=== PATIENT | male | born 1955 | race Caucasian/White ===

== ENCOUNTER → 2023-10-11 14:24 | Outpatient (CLI) | payer MEDICARE, SELFPAY ==
--- NOTE | ~2023-10-11 | XR_ITS ---
EXAMINATION: XR chest 2V DATE: 10/11/2023 14:55 INDICATION: Productive cough. TECHNIQUE: Frontal and lateral views of the chest were obtained. COMPARISON: None. FINDINGS: There is blunting of left lateral costophrenic angle, consistent with scarring. No pleural effusion or pneumothorax. The heart size is normal. IMPRESSION: 1. Left lateral costophrenic angle. Reviewed, dictated and finalized at location E.
== END ==
PROVIDERS: PCP Physician Assistant; Visit Provider Physician Assistant
DX: R05.9 Cough, unspecified (principal)
CPT/HCPCS: 71046

== ENCOUNTER 2024-12-29 07:11 | Outpatient (CLI) | payer MEDICARE, SELFPAY ==
--- NOTE | ~2024-12-29 | US_ITS ---
Abdominal Sonogram: Real-time sonographic imaging of the abdomen was performed. Clinical History: Increasing abdominal girth Findings: The liver appears normal with no evidence of mass lesion or bile duct dilatation. Main por octavia vein demonstrates normal direction of flow. The spleen is normal in size without evidence of foca l lesion. The gallbladder is well distended, and appears normal with no evidence of gallstone or wal l thickening. The common bile duct measures 4 mm. The visualized pancreas, aorta, and IVC are unrema rkable. The right kidney measures 11.5 cm in length and the left kidney measures 12.4 cm. There is no hydronephrosis or renal calculus. Small bilateral renal cysts are present. Impression: No significant abnormality. Reviewed, dictated and finalized at [facility]. Impression: No significant abnormality.
--- OUTSIDE RECORDS SUMMARY | 2024-12-29 07:14 | XMS_ITS | Clinical Summary ---
Author Organization [facility] Address [address] [place] [address] Care Team Providers Care Transformation Manager Name Role Phone Nilesh Marrero MD Primary Care Provider [phone] Allergies No known active allergies Medications vortioxetine (BRINTELLIX) 10 MG tablet Take 1 tablet by mouth daily. 5 Active lithium 300 MG capsule Take 300 mg by mouth 3 (three) times a day. 5 Active diazepam 5 MG tablet Take 1 tablet by mouth 4 (four) times daily as needed. 6 Active Flurazepam HCl 15 MG Cap flurazepam capsule 15 mg; take 1-2 tablet by mouth once a day at bedtime; 0; 02-Oct-2015; Active 6 Active folic acid 1 MG tablet Take 1 tablet by mouth daily. 4 Active aspirin 81 MG chewable tablet Chew 1 tablet by mouth daily. 1 Active DAILY MULTIPLE VITAMINS Tab Take 1 tablet by mouth daily. 5 Active benazepril 40 MG tablet Take 1 tablet (40 mg total) by mouth 2 (two) times a day. 60 tablet 2 9 Active spironolactone- hydrochlorothia zide 25-25 MG tablet Take 1 tablet by mouth daily. 30 tablet 2 9 Active Active Problems Problem Noted Date Diagnosed Date Essential (primary) hypertension 11/11/2016 Bradycardia 11/11/2016 Family History Medical History Relation Comments Heart Attack Maternal Grandfather [place] Mother Heart Disease Other Family history i s positive for coronary heart disease. Relation Status Comments Maternal Grandfather (Age 74) from heart attack Mother (Age 63) Other Social History Tobacco Use Types Packs/Day Years Used Date Smoking Tobacco: Former Cigarettes Q uit: 11/2014 Smokeless Tobacco: Never Alcohol Use Standard Drinks/Week Comments No 0 (1 standard drink = 0.6 oz pure alcohol) Alcoholic previous years, does not drink alcohol now. Sex and Gender Information Value Date Recorded Sex Assigned at Not on file Legal Sex Male 3:40 PM CDT Gender Identity Not on file Sexual Orientation Not on file Occupation Industry Job Start Date Job End Date disabled Not on file Not on file Not on file Last Filed Vital Signs Vital Sign Reading Time Taken Comments Blood Pressure 132/88 11/11/2016 1:36 PM CDT Pulse 59 11/11/2016 1:36 PM CDT Temperature - - Respiratory Rate 14 10/02/2015 2:57 PM CDT R egular Oxygen Saturation 95% 11/11/2016 1:36 PM CDT Inhaled Oxygen Concentration - - Weight 98.5 kg (217 lb 3.2 oz) 11/11/2016 1:36 P M CDT Height 185.4 cm (6' 1) 11/11/2016 1:36 PM CDT Body Mass Index 28.66 11/11/2016 1:36 PM CDT Plan of Treatment Health Maintenance Due Date Last Done Comments Colorectal Cancer Screening Colonoscopy (10 Years) 1955 Hepatitis C 1974 DTaP, Tdap and Td Vaccines ( 1 - Tdap) 1975 Pneumococcal Vaccine: 50+ Ye ars (1 of 1 - PCV) 2006 Zoster Vaccines (1 of 2) 2006 Annual Medicare Wellness Visit 2021 COVID-19 Vaccine ( - 2023-2 5 season) 2024 RSV Immunization or 60+ Years (1 - 1-dose 75+ series) 2031 Meningococcal B Vaccine Aged Out No l onger eligible based on patient's age to complete this topic Meningococcal Vaccine Aged Out No grzegorz raji eligible based on patient's age to complete this topic RSV Immunizations Under 20 Months Aged Out No longer eligible based on patient's age to complete this topic Insurance [facility] MEDICARE Care Teams Transformation Manager Relationship Specialty Start Date End Date Nilesh Marrero MD PCP - General FAMILY PRACTICE 11/12/16
--- OUTSIDE RECORDS SUMMARY | 2024-12-29 07:14 | XMS_ITS | Patient Health Record ---
Author Organization [facility] [employer] [facility] Address [address] [place] [address] Care Team Providers Care Operations Support Professionals Name Role Phone Yuly Dawn PA-C Primary Care Provider Flavia Sun Unavailable [phone] Allergies No Known Allergies Reason For Referral No Information Medications Medication SIG (Take, Route, Frequency, Duration) Notes Start Date End Date Status Spironolactone-HCTZ 25-25 mg Oral 08/06/2023 Active Aspirin Adult Low Strength 81 MG Oral 08/06/2023 Active Gabapentin 300 MG Oral 08/06/2023 A ctive Tylenol PM Extra Strength *Pick strength-form from [employer] for eRX* 08/06/2023 Active Teachey Carbonate 300 MG 1 capsule Oral Twice a day; Duration: 90 days Active traMADol HCl 50 MG Oral 08/06/2023 Active QUEtiapine Fumarate 200 MG 1 tablet Oral at bedtime; Duration: 90 days Active QUEtiapine Fumarate 50 MG 1 tablet Oral bedtime; Duration: 90 days Active QUEtiapine Fumarate 200 MG 1 tablet Oral at bedtime; Duration: 30 days Active Benazepril HCl 40 MG Oral 08/06/2023 Active Immunizations Vaccine Route Administration Date Status Comme nts Pfizer Biontech Covid-19 Vac cine 2nd dose Unknown 08/16/2020 Administered Pfizer Biontech Covid-19 Vac cine 2nd dose Unknown 09/09/2020 Administered Novel [id number], preservative free Unknown 05/11/2020 Administered Social History Tobacco Use: Social History Observation Description Date Details (start date - stop date) Current Smoker NA - NA Sex Assigned At : Social History Observation Description Sex Assigned At Male Household Question Answer Notes Marital status: Number of adults in household: 2 Sexual History Question Answer Notes Had sex in the past 12 months (vaginal, oral, or anal)? Yes with Women only Tobacco Control (Standard) Question Answer Notes Tobacco use: Current smoker How often do you smoke cigarettes? Every day How many cigarettes a day do you smoke? 05-11 AUDIT-C (Standard) Question Answer Notes Did you have a drink contain ing alcohol in the past year? Yes How often did you have six o r more drinks on one occasion in the past year? Less than monthly (1 point) How many drinks did you have on a typical day when you were drinking in the past year? 3 or 4 drinks (1 point) How often did you have a dri nk containing alcohol in the past year? Monthly or less (1 point) Points 3 Interpretation Negative Problems Problem Type SNOMED Code ICD Code Onset Dates Problem Status W/U Status Risk Notes Problem Bipolar affective disorder, currently depressed, mild (708826902) Bipolar disorder, current episode depressed, mild (F31.31) 08/06/19 24 Active confirmed Problem Generalized anxiety disorder (71158964) Generalized anxiety disorder (F41.1) 08/06/19 24 Active confirmed Problem Primary insomnia (1107014) Primary insomnia (F51.01) 08/06/19 24 Active confirmed Problem Alzheimer's disease with early onset (868723749) Alzheimer's disease with early onset (G30.0) Active confirmed Problem Essential hypertension (82860416) Essential (primary) hypertension (I10) 08/06/19 24 Active confirmed Problem Screening for cardiovascular system disease (456055207) Encounter for screening for cardiovascular disorders (Z13.6) Active confirmed Problem Dietary management surveillance (780040772) Dietary counseling and surveillance (Z71.3) Active confirmed Problem Tobacco use (218277758) Tobacco use (Z72.0) 12/17/19 Active confirmed Problem Long-term current use of drug therapy (114489905) 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) 08/06/19 24 Active confirmed Problem Depression Screening (722811799) Encounter for screening for depression (Z13.31) Active confirmed Problem 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, moderate, with mood disturbance (F02.B3) Active confirmed Vital Signs Heart Rate 50 /min 11/10/2024 Respiratory Rate 16 /min 11/10/2024 Height-cm 185.42 cm 11/10/2024 Blood pressure diastolic 96 mm Hg 11/10/2024 Weight-kg 101.7 kg 11/10/2024 Height 73.00 in 11/10/2024 Blood pressure systolic 151 mm Hg 11/10/2024 Weight 224.2 lbs 11/10/2024 BMI 29.58 kg/m2 11/10/2024 Encounters Encounter Location Date Provider Diagnosis [facility] [employer] [address] [address] 05/13/2024 Flavia Smith Bipolar disorder, current episode depressed, mild F31.31 ; Generalized anxiety disorder F41.1 ; Primary insomnia F51.01 ; Essential (primary) hypertension I10 ; Tobacco use Z72.0 and 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 Z79.899 [facility] [employer] [address] [address] 11/10/2024 Flavia Smith Encounter for screen ing for depression Z13.31 ; Bipolar disorder, current episode depressed, mild F31.31 ; Encounter for screening for cardiovascular disorders Z13.6 ; Dietary counseling and surveillance Z71.3 ; Generalized anxiety disorder F41.1 ; Primary insomnia F51.01 ; Essential (primary) hypertension I10 ; Tobacco use Z72.0 ; Other retirement (current) drug therapy Z79.899 ; Alzheimer's disease with early onset G30.0 and Dementia in other diseases classified elsewhere, moderate, with mood disturbance F02.B3 [facility] [employer] [address] [address] 04/22/2024 Flavia Smith Assessments Encounter Date Diagnosis (ICD Code) Assessment Notes Treatment Notes Treatment Clinical Notes Section Notes 05/13/2024 Bipolar disorder, current episode depressed, mild (ICD-10 - F31.31) Bipolar Disorder: Care Instructions material was published, Learning About How to Get Help During a Mental Health Crisis material was published, Learning About Mood Disorders material was published, Learning About Movement Disorders From Antipsychotic Medicines material was published presently taking Seroquel 200 mg bedtime and 50 mg and Teachey 300 MG twice a day 1. Bipolar depppression- Seroquel 200 mg bedtime and 50 mg Teachey 300 MG twice a day labs ordered obtain labs PCP AIMS= 0 2 teeth missing 05/13/24 2. Anxiety- mild 3. Primary Insomnia - sleep hygiene 4. Tobacco use Do not smoke. Nicotine and other chemicals in cigarettes and cigars can cause lung damage. Ask your healthcare provider for information if you currently smoke and need help to quit. E-cigarettes or smokeless tobacco still contain nicotine. Talk to your healthcare provider before you use these products. education on decrease to stopping nicotine products and stop smoking hotline given http_s://www.katharina .org/About-Mental -Illness/Mental-H ealth-Conditions http_s://[employer]/depressi on/the-cognitive- ptmuzfji-ye-emjgz ssion#treatments http__s://www.nim .nih.gov/health/ topics/mental-hea lt-medications http__s://www.nam i.org/About-Menta l-Illness/Treatme nts/Mental-Health -Medications educated on all medications, benefits, side effects and risk, and educated on depression, anxiety, and ADHD, mood d/o and educated on compliance of medications, metabolic and movement d/o education appointment's, continue therapy discussion with patient about course of treatment and patient instructions. education on serotonin syndrome Discussed and educated pt regarding benzodiazepines are generally not intended for prolonged use and that use can cause tolerance, dependence, depression, and associated memory issues including dementias (this list is not exhaustive). Benzodiazepine use is generally not recommended concurrently with pain medications and/or other controlled substances educated on all medications, benefits, side effects and risk, and educated on depression, anxiety, and ADHD, mood d/o and educated on compliance of medications, metabolic and movement d/o education appointment is, continue therapy discussion with patient about course of treatment and patient instructions. education on serotonin syndrome SSRI/SNRI side effects discussed including but not limited to, gastric upset, nausea, vomiting, diarrhea and/or constipation, weight changes, sexual side effects including loss of libido, increased suicidal thoughts/behavior s in children and young adults, and serotonin syndrome. Second generation antipsychotics (SGAs) have metabolic syndrome issues with weight gain, increase in prolactin, increased waist circumference, increased lipids, and increased glucose. Thus routine monitoring of weight, metabolic labs, etc. is indicated. A general rank ordering of antipsychotics that have the greatest to the least risk of metabolic effects is olanzapine, quetiapine, risperidone, ziprasidone, and aripiprazole. However, weight gain can occur with all of these drugs and considerable variability exists among patients receiving the same drug regarding the risk of metabolic effects. Anti-psychotic agents not only increase the risk of metabolic disorder, they also increase the risk of CVA, akathisia, and movement disorders including EPS or tardive dyskinesia (more common with first generation antipsychotics) and more. Elderly- discussed risks, cognition, sedation, falls, metabolic, movement and atypical antipsychotics carry a black-box warning for increased risk of and cerebrovascular events in dementia. Medication Management and Follow-Up - Plan: - Schedule follow-up appointments every 1-3 months to monitor the patient's response to the medication regimen. - Reinforce the importance of avoiding recreational drug use due to potential neurotoxicity and interactions with prescribed medic 05/13/2024 Generalized anxiety disorder (ICD-10 - F41.1) Generalized Anxiety Disorder: Care Instructions material was published, Learning About Generalized Anxiety Disorder material was published, Learning About Anxiety Disorders material was published presently taking Seroquel 200 mg bedtime and 50 mg and Teachey 300 MG twice a day 1. Bipolar depppression- Seroquel 200 mg bedtime and 50 mg Teachey 300 MG twice a day labs ordered obtain labs PCP AIMS= 0 2 teeth missing 05/13/24 2. Anxiety- mild 3. Primary Insomnia - sleep hygiene 4. Tobacco use Do not smoke. Nicotine and other chemicals in cigarettes and cigars can cause lung damage. Ask your healthcare provider for information if you currently smoke and need help to quit. E-cigarettes or smokeless tobacco still contain nicotine. Talk to your healthcare provider before you use these products. education on decrease to stopping nicotine products and stop smoking hotline given http_s://www.katharina .org/About-Mental -Illness/Mental-H ealth-Conditions http_s://psychcen [employer].com/depressi on/the-cognitive- lwzivhff-rc-eyity ssion#treatments http__s://www.nim h.nih.gov/health/ topics/mental-hea lth-medications http__s://www.nam i.org/About-Menta l-Illness/Treatme nts/Mental-Health -Medications educated on all medications, benefits, side effects and risk, and educated on depression, anxiety, and ADHD, mood d/o and educated on compliance of medications, metabolic and movement d/o education appointment's, continue therapy discussion with patient about course of treatment and patient instructions. education on serotonin syndrome Discussed and educated pt regarding benzodiazepines are generally not intended for prolonged use and that use can cause tolerance, dependence, depression, and associated memory issues including dementias (this list is not exhaustive). Benzodiazepine use is generally not recommended concurrently with pain medications and/or other controlled substances educated on all medications, benefits, side effects and risk, and educated on depression, anxiety, and ADHD, mood d/o and educated on compliance of medications, metabolic and movement d/o education appointment is, continue therapy discussion with patient about course of treatment and patient instructions. education on serotonin syndrome SSRI/SNRI side effects discussed including but not limited to, gastric upset, nausea, vomiting, diarrhea and/or constipation, weight changes, sexual side effects including loss of libido, increased suicidal thoughts/behavior s in children and young adults, and serotonin syndrome. Second generation antipsychotics (SGAs) have metabolic syndrome issues with weight gain, increase in prolactin, increased waist circumference, increased lipids, and increased glucose. Thus routine monitoring of weight, metabolic labs, etc. is indicated. A general rank ordering of antipsychotics that have the greatest to the least risk of metabolic effects is olanzapine, quetiapine, risperidone, ziprasidone, and aripiprazole. However, weight gain can occur with all of these drugs and considerable variability exists among patients receiving the same drug regarding the risk of metabolic effects. Anti-psychotic agents not only increase the risk of metabolic disorder, they also increase the risk of CVA, akathisia, and movement disorders including EPS or tardive dyskinesia (more common with first generation antipsychotics) and more. Elderly- discussed risks, cognition, sedation, falls, metabolic, movement and atypical antipsychotics carry a black-box warning for increased risk of and cerebrovascular events in dementia. Medication Management and Follow-Up - Plan: - Schedule follow-up appointments every 1-3 months to monitor the patient's response to the medication regimen. - Reinforce the importance of avoiding recreational drug use due to potential neurotoxicity and interactions with prescribed medic 11/10/2024 Bipolar disorder, current episode depressed, mild (ICD-10 - F31.31) Bipolar Disorder: Care Instructions material was published, Learning About How to Get Help During a Mental Health Crisis material was published, Learning About Mood Disorders material was published, Learning About Movement Disorders From Antipsychotic Medicines material was published presently taking Seroquel 200 mg bedtime and 50 mg and Teachey 300 MG twice a day 1. Bipolar depppression- Seroquel 200 mg bedtime and 50 mg Teachey 300 MG twice a day labs ordered obtain labs PCP AIMS= 0 2 teeth missing 05/13/24 2. Anxiety- mild 3. Primary Insomnia - sleep hygiene 4. Tobacco use Do not smoke. Nicotine and other chemicals in cigarettes and cigars can cause lung damage. Ask your healthcare provider for information if you currently smoke and need help to quit. E-cigarettes or smokeless tobacco still contain nicotine. Talk to your healthcare provider before you use these products. education on decrease to stopping nicotine products and stop smoking hotline given Smoking Education Do not smoke. Nicotine and other chemicals in cigarettes and cigars can cause lung damage. Ask your healthcare provider for information if you currently smoke and need help to quit. E-cigarettes or smokeless tobacco still contain nicotine. Talk to your healthcare provider before you use these products. education on decrease to stopping nicotine products and stop smoking hotline given 666-Quit - Yes [place] Tobacco Quitline Call a Smoking Quitline The [employer] [place]'s Smoking Quitline, (1-271-19C-QUIT) Smokefree.gov, which connects you with your State's Quitline, (1-530-OPLJEGU) Veterans Smoking Quitline, (5-116-TXWXWHF) 5. Dementia discuss Memory and SLUMS patient reported does not want rx for memory and does not feel anything is wrong with his memory SLUMS= 7 11/10/24 http_s://www.katharina .org/About-Mental -Illness/Mental-H ealth-Conditions http_s://psychcen tral.com/depressi on/the-cognitive- ouqyjrpa-kd-pilzx ssion#treatments http__s://www.nim h.nih.gov/health/ topics/mental-hea lth-medications http__s://www.nam i.org/About-Menta l-Illness/Treatme nts/Mental-Health -Medications educated on all medications, benefits, side effects and risk, and educated on depression, anxiety, and ADHD, mood d/o and educated on compliance of medications, metabolic and movement d/o education appointment's, continue therapy discussion with patient about course of treatment and patient instructions. education on serotonin syndrome Discussed and educated pt regarding benzodiazepines are generally not intended for prolonged use and that use can cause tolerance, dependence, depression, and associated memory issues including dementias (this list is not exhaustive). Benzodiazepine use is generally not recommended concurrently with pain medications and/or other controlled substances educated on all medications, benefits, side effects and risk, and educated on depression, anxiety, and ADHD, mood d/o and educated on compliance of medications, metabolic and movement d/o education appointment is, continue therapy discussion with patient about course of treatment and patient instructions. education on serotonin syndrome SSRI/SNRI side effects discussed including but not limited to, gastric upset, nausea, vomiting, diarrhea and/or constipation, weight changes, sexual side effects including loss of libido, increased suicidal thoughts/behavior s in children and young adults, and serotonin syndrome. Second generation antipsychotics (SGAs) have metabolic syndrome issues with weight gain, increase in prolactin, increased waist circumference, increased lipids, and increased glucose. Thus routine monitoring of weight, metabolic labs, etc. is indicated. A general rank ordering of antipsychotics that have the greatest to the least risk of metabolic effects is olanzapine, quetiapine, risperidone, ziprasidone, and aripiprazole. However, weight gain can occur with all of these drugs and considerable variability exists among patients receiving the same drug regarding the risk of metabolic effects. Anti-psychotic agents not only increase the risk of metabolic disorder, they also increase the risk of CVA, akathisia, and movement disorders including EPS or tardive dyskinesia (more common with first generation antipsychotics) and more. Elderly- discussed risks, cognition, sedation, falls, metabolic, movement and atypical antipsychotics carry a black-box warning for increased risk of and cerebrovascular events in dementia. Medication Management and Follow-Up - Plan: - Schedule follow-up appointments every 1-3 months to monitor the patient's response to the medication regimen. - Reinforce the importance of avoiding recreational drug use due to potential neurotoxicity and interactions with prescribed medic 11/10/2024 Encounter for screening for depression (ICD-10 - Z13.31) presently taking Seroquel 200 mg bedtime and 50 mg and Teachey 300 MG twice a day 1. Bipolar depppression- Seroquel 200 mg bedtime and 50 mg Teachey 300 MG twice a day labs ordered obtain labs PCP AIMS= 0 2 teeth missing 05/13/24 2. Anxiety- mild 3. Primary Insomnia - sleep hygiene 4. Tobacco use Do not smoke. Nicotine and other chemicals in cigarettes and cigars can cause lung damage. Ask your healthcare provider for information if you currently smoke and need help to quit. E-cigarettes or smokeless tobacco still contain nicotine. Talk to your healthcare provider before you use these products. education on decrease to stopping nicotine products and stop smoking hotline given Smoking Education Do not smoke. Nicotine and other chemicals in cigarettes and cigars can cause lung damage. Ask your healthcare provider for information if you currently smoke and need help to quit. E-cigarettes or smokeless tobacco still contain nicotine. Talk to your healthcare provider before you use these products. education on decrease to stopping nicotine products and stop smoking hotline given 201-Quit - Yes [place] Tobacco Quitline Call a Smoking Quitline The [employer] [place]'s Smoking Quitline, (7-459-84B-QUIT) Smokefree.gov, which connects you with your [facility]'s Quitline, (0-778-IBTCZWJ) [facility] Smoking Quitline, (1-927-IBDSINH) 5. Dementia discuss Memory and SLUMS patient reported does not want rx for memory and does not feel anything is wrong with his memory SLUMS= 7 11/10/24 http_s://www.katharina .org/About-Mental -Illness/Mental-H ealth-Conditions http_s://psychcen tral.com/depressi on/the-cognitive- lzagrdme-jb-briro ssion#treatments http__s://www.nim h.nih.gov/health/ topics/mental-hea lth-medications http__s://www.nam i.org/About-Menta l-Illness/Treatme nts/Mental-Health -Medications educated on all medications, benefits, side effects and risk, and educated on depression, anxiety, and ADHD, mood d/o and educated on compliance of medications, metabolic and movement d/o education appointment's, continue therapy discussion with patient about course of treatment and patient instructions. education on serotonin syndrome Discussed and educated pt regarding benzodiazepines are generally not intended for prolonged use and that use can cause tolerance, dependence, depression, and associated memory issues including dementias (this list is not exhaustive). Benzodiazepine use is generally not recommended concurrently with pain medications and/or other controlled substances educated on all medications, benefits, side effects and risk, and educated on depression, anxiety, and ADHD, mood d/o and educated on compliance of medications, metabolic and movement d/o education appointment is, continue therapy discussion with patient about course of treatment and patient instructions. education on serotonin syndrome SSRI/SNRI side effects discussed including but not limited to, gastric upset, nausea, vomiting, diarrhea and/or constipation, weight changes, sexual side effects including loss of libido, increased suicidal thoughts/behavior s in children and young adults, and serotonin syndrome. Second generation antipsychotics (SGAs) have metabolic syndrome issues with weight gain, increase in prolactin, increased waist circumference, increased lipids, and increased glucose. Thus routine monitoring of weight, metabolic labs, etc. is indicated. A general rank ordering of antipsychotics that have the greatest to the least risk of metabolic effects is olanzapine, quetiapine, risperidone, ziprasidone, and aripiprazole. However, weight gain can occur with all of these drugs and considerable variability exists among patients receiving the same drug regarding the risk of metabolic effects. Anti-psychotic agents not only increase the risk of metabolic disorder, they also increase the risk of CVA, akathisia, and movement disorders including EPS or tardive dyskinesia (more common with first generation antipsychotics) and more. Elderly- discussed risks, cognition, sedation, falls, metabolic, movement and atypical antipsychotics carry a black-box warning for increased risk of and cerebrovascular events in dementia. Medication Management and Follow-Up - Plan: - Schedule follow-up appointments every 1-3 months to monitor the patient's response to the medication regimen. - Reinforce the importance of avoiding recreational drug use due to potential neurotoxicity and interactions with prescribed medic 11/10/2024 Encounter for screening for cardiovascular disorders (ICD-10 - Z13.6) presently taking Seroquel 200 mg bedtime and 50 mg and Teachey 300 MG twice a day 1. Bipolar depppression- Seroquel 200 mg bedtime and 50 mg Teachey 300 MG twice a day labs ordered obtain labs PCP AIMS= 0 2 teeth missing 05/13/24 2. Anxiety- mild 3. Primary Insomnia - sleep hygiene 4. Tobacco use Do not smoke. Nicotine and other chemicals in cigarettes and cigars can cause lung damage. Ask your healthcare provider for information if you currently smoke and need help to quit. E-cigarettes or smokeless tobacco still contain nicotine. Talk to your healthcare provider before you use these products. education on decrease to stopping nicotine products and stop smoking hotline given Smoking Education Do not smoke. Nicotine and other chemicals in cigarettes and cigars can cause lung damage. Ask your healthcare provider for information if you currently smoke and need help to quit. E-cigarettes or smokeless tobacco still contain nicotine. Talk to your healthcare provider before you use these products. education on decrease to stopping nicotine products and stop smoking hotline given -254-Quit - Yes [place] Tobacco Quitline Call a Smoking Quitline The [employer] [place]'s Smoking Quitline, (5-663-34E-QUIT) Smokefree.gov, which connects you with your State's Quitline, (1-759-VTHRPXW) [facility] Smoking Quitline, (3-956-VUFLDNF) 5. Dementia discuss Memory and SLUMS patient reported does not want rx for memory and does not feel anything is wrong with his memory SLUMS= 7 11/10/24 http_s://www.[facility] .org/About-Mental -Illness/Mental-H ealth-Conditions http_s://psychcen tral.com/depressi on/the-cognitive- cvwhavln-fm-crebj ssion#treatments http__s://www.nim h.nih.gov/health/ topics/mental-hea lth-medications http__s://www.nam i.org/About-Menta l-Illness/Treatme nts/Mental-Health -Medications educated on all medications, benefits, side effects and risk, and educated on depression, anxiety, and ADHD, mood d/o and educated on compliance of medications, metabolic and movement d/o education appointment's, continue therapy discussion with patient about course of treatment and patient instructions. education on serotonin syndrome Discussed and educated pt regarding benzodiazepines are generally not intended for prolonged use and that use can cause tolerance, dependence, depression, and associated memory issues including dementias (this list is not exhaustive). Benzodiazepine use is generally not recommended concurrently with pain medications and/or other controlled substances educated on all medications, benefits, side effects and risk, and educated on depression, anxiety, and ADHD, mood d/o and educated on compliance of medications, metabolic and movement d/o education appointment is, continue therapy discussion with patient about course of treatment and patient instructions. education on serotonin syndrome SSRI/SNRI side effects discussed including but not limited to, gastric upset, nausea, vomiting, diarrhea and/or constipation, weight changes, sexual side effects including loss of libido, increased suicidal thoughts/behavior s in children and young adults, and serotonin syndrome. Second generation antipsychotics (SGAs) have metabolic syndrome issues with weight gain, increase in prolactin, increased waist circumference, increased lipids, and increased glucose. Thus routine monitoring of weight, metabolic labs, etc. is indicated. A general rank ordering of antipsychotics that have the greatest to the least risk of metabolic effects is olanzapine, quetiapine, risperidone, ziprasidone, and aripiprazole. However, weight gain can occur with all of these drugs and considerable variability exists among patients receiving the same drug regarding the risk of metabolic effects. Anti-psychotic agents not only increase the risk of metabolic disorder, they also increase the risk of CVA, akathisia, and movement disorders including EPS or tardive dyskinesia (more common with first generation antipsychotics) and more. Elderly- discussed risks, cognition, sedation, falls, metabolic, movement and atypical antipsychotics carry a black-box warning for increased risk of and cerebrovascular events in dementia. Medication Management and Follow-Up - Plan: - Schedule follow-up appointments every 1-3 months to monitor the patient's response to the medication regimen. - Reinforce the importance of avoiding recreational drug use due to potential neurotoxicity and interactions with prescribed medic 05/13/2024 Primary insomnia (ICD-10 - F51.01) Insomnia: Care Instructions material was published, Learning About Sleeping Well material was published presently taking Seroquel 200 mg bedtime and 50 mg and Teachey 300 MG twice a day 1. Bipolar depppression- Seroquel 200 mg bedtime and 50 mg Teachey 300 MG twice a day labs ordered obtain labs PCP AIMS= 0 2 teeth missing 05/13/24 2. Anxiety- mild 3. Primary Insomnia - sleep hygiene 4. Tobacco use Do not smoke. Nicotine and other chemicals in cigarettes and cigars can cause lung damage. Ask your healthcare provider for information if you currently smoke and need help to quit. E-cigarettes or smokeless tobacco still contain nicotine. Talk to your healthcare provider before you use these products. education on decrease to stopping nicotine products and stop smoking hotline given http_s://www.[facility]ina .org/About-Mental -Illness/Mental-H ealth-Conditions http_s://[employer]/depressi on/the-cognitive- mcpviwhd-lv-akfpq ssion#treatments http__s://www.nim .nih.gov/health/ topics/mental-hea lth-medications http__s://www.nam i.org/About-Menta l-Illness/Treatme nts/Mental-Health -Medications educated on all medications, benefits, side effects and risk, and educated on depression, anxiety, and ADHD, mood d/o and educated on compliance of medications, metabolic and movement d/o education appointment's, continue therapy discussion with patient about course of treatment and patient instructions. education on serotonin syndrome Discussed and educated pt regarding benzodiazepines are generally not intended for prolonged use and that use can cause tolerance, dependence, depression, and associated memory issues including dementias (this list is not exhaustive). Benzodiazepine use is generally not recommended concurrently with pain medications and/or other controlled substances educated on all medications, benefits, side effects and risk, and educated on depression, anxiety, and ADHD, mood d/o and educated on compliance of medications, metabolic and movement d/o education appointment is, continue therapy discussion with patient about course of treatment and patient instructions. education on serotonin syndrome SSRI/SNRI side effects discussed including but not limited to, gastric upset, nausea, vomiting, diarrhea and/or constipation, weight changes, sexual side effects including loss of libido, increased suicidal thoughts/behavior s in children and young adults, and serotonin syndrome. Second generation antipsychotics (SGAs) have metabolic syndrome issues with weight gain, increase in prolactin, increased waist circumference, increased lipids, and increased glucose. Thus routine monitoring of weight, metabolic labs, etc. is indicated. A general rank ordering of antipsychotics that have the greatest to the least risk of metabolic effects is olanzapine, quetiapine, risperidone, ziprasidone, and aripiprazole. However, weight gain can occur with all of these drugs and considerable variability exists among patients receiving the same drug regarding the risk of metabolic effects. Anti-psychotic agents not only increase the risk of metabolic disorder, they also increase the risk of CVA, akathisia, and movement disorders including EPS or tardive dyskinesia (more common with first generation antipsychotics) and more. Elderly- discussed risks, cognition, sedation, falls, metabolic, movement and atypical antipsychotics carry a black-box warning for increased risk of and cerebrovascular events in dementia. Medication Management and Follow-Up - Plan: - Schedule follow-up appointments every 1-3 months to monitor the patient's response to the medication regimen. - Reinforce the importance of avoiding recreational drug use due to potential neurotoxicity and interactions with prescribed medic 05/13/2024 Essential (primary) hypertension (ICD-10 - I10) Learning About High Blood Pressure material was published, High Blood Pressure: Care Instructions material was published presently taking Seroquel 200 mg bedtime and 50 mg and Teachey 300 MG twice a day 1. Bipolar depppression- Seroquel 200 mg bedtime and 50 mg Teachey 300 MG twice a day labs ordered obtain labs PCP AIMS= 0 2 teeth missing 05/13/24 2. Anxiety- mild 3. Primary Insomnia - sleep hygiene 4. Tobacco use Do not smoke. Nicotine and other chemicals in cigarettes and cigars can cause lung damage. Ask your healthcare provider for information if you currently smoke and need help to quit. E-cigarettes or smokeless tobacco still contain nicotine. Talk to your healthcare provider before you use these products. education on decrease to stopping nicotine products and stop smoking hotline given http_s://www.[facility] .org/About-Mental -Illness/Mental-H ealth-Conditions http_s://psychcen [employer].com/depressi on/the-cognitive- egjjijmy-rg-lujwi ssion#treatments http__s://www.nim h.nih.gov/health/ topics/mental-hea lth-medications http__s://www.nam i.org/About-Menta l-Illness/Treatme nts/Mental-Health -Medications educated on all medications, benefits, side effects and risk, and educated on depression, anxiety, and ADHD, mood d/o and educated on compliance of medications, metabolic and movement d/o education appointment's, continue therapy discussion with patient about course of treatment and patient instructions. education on serotonin syndrome Discussed and educated pt regarding benzodiazepines are generally not intended for prolonged use and that use can cause tolerance, dependence, depression, and associated memory issues including dementias (this list is not exhaustive). Benzodiazepine use is generally not recommended concurrently with pain medications and/or other controlled substances educated on all medications, benefits, side effects and risk, and educated on depression, anxiety, and ADHD, mood d/o and educated on compliance of medications, metabolic and movement d/o education appointment is, continue therapy discussion with patient about course of treatment and patient instructions. education on serotonin syndrome SSRI/SNRI side effects discussed including but not limited to, gastric upset, nausea, vomiting, diarrhea and/or constipation, weight changes, sexual side effects including loss of libido, increased suicidal thoughts/behavior s in children and young adults, and serotonin syndrome. Second generation antipsychotics (SGAs) have metabolic syndrome issues with weight gain, increase in prolactin, increased waist circumference, increased lipids, and increased glucose. Thus routine monitoring of weight, metabolic labs, etc. is indicated. A general rank ordering of antipsychotics that have the greatest to the least risk of metabolic effects is olanzapine, quetiapine, risperidone, ziprasidone, and aripiprazole. However, weight gain can occur with all of these drugs and considerable variability exists among patients receiving the same drug regarding the risk of metabolic effects. Anti-psychotic agents not only increase the risk of metabolic disorder, they also increase the risk of CVA, akathisia, and movement disorders including EPS or tardive dyskinesia (more common with first generation antipsychotics) and more. Elderly- discussed risks, cognition, sedation, falls, metabolic, movement and atypical antipsychotics carry a black-box warning for increased risk of and cerebrovascular events in dementia. Medication Management and Follow-Up - Plan: - Schedule follow-up appointments every 1-3 months to monitor the patient's response to the medication regimen. - Reinforce the importance of avoiding recreational drug use due to potential neurotoxicity and interactions with prescribed medic 11/10/2024 Dietary counseling and surveillance (ICD-10 - Z71.3) presently taking Seroquel 200 mg bedtime and 50 mg and Teachey 300 MG twice a day 1. Bipolar depppression- Seroquel 200 mg bedtime and 50 mg Teachey 300 MG twice a day labs ordered obtain labs PCP AIMS= 0 2 teeth missing 05/13/24 2. Anxiety- mild 3. Primary Insomnia - sleep hygiene 4. Tobacco use Do not smoke. Nicotine and other chemicals in cigarettes and cigars can cause lung damage. Ask your healthcare provider for information if you currently smoke and need help to quit. E-cigarettes or smokeless tobacco still contain nicotine. Talk to your healthcare provider before you use these products. education on decrease to stopping nicotine products and stop smoking hotline given Smoking Education Do not smoke. Nicotine and other chemicals in cigarettes and cigars can cause lung damage. Ask your healthcare provider for information if you currently smoke and need help to quit. E-cigarettes or smokeless tobacco still contain nicotine. Talk to your healthcare provider before you use these products. education on decrease to stopping nicotine products and stop smoking hotline given -416-Quit - Yes [place] Tobacco Quitline Call a Smoking Quitline [employer] [place]'s Smoking Quitline, (3-156-30V-QUIT) Smokefree.gov, which connects you with your [facility]'s Quitline, (8-980-WWGBFVC) [facility] Smoking Quitline, (7-643-DXETBXR) 5. Dementia discuss Memory and SLUMS patient reported does not want rx for memory and does not feel anything is wrong with his memory SLUMS= 7 11/10/24 http_s://www.kath[facility]ina .org/About-Mental -Illness/Mental-H ealth-Conditions http_s://psychcen tral.com/depressi on/the-cognitive- xsibxehe-cc-tehxy ssion#treatments http__s://www.nim h.nih.gov/health/ topics/mental-hea lth-medications http__s://www.nam i.org/About-Menta l-Illness/Treatme nts/Mental-Health -Medications educated on all medications, benefits, side effects and risk, and educated on depression, anxiety, and ADHD, mood d/o and educated on compliance of medications, metabolic and movement d/o education appointment's, continue therapy discussion with patient about course of treatment and patient instructions. education on serotonin syndrome Discussed and educated pt regarding benzodiazepines are generally not intended for prolonged use and that use can cause tolerance, dependence, depression, and associated memory issues including dementias (this list is not exhaustive). Benzodiazepine use is generally not recommended concurrently with pain medications and/or other controlled substances educated on all medications, benefits, side effects and risk, and educated on depression, anxiety, and ADHD, mood d/o and educated on compliance of medications, metabolic and movement d/o education appointment is, continue therapy discussion with patient about course of treatment and patient instructions. education on serotonin syndrome SSRI/SNRI side effects discussed including but not limited to, gastric upset, nausea, vomiting, diarrhea and/or constipation, weight changes, sexual side effects including loss of libido, increased suicidal thoughts/behavior s in children and young adults, and serotonin syndrome. Second generation antipsychotics (SGAs) have metabolic syndrome issues with weight gain, increase in prolactin, increased waist circumference, increased lipids, and increased glucose. Thus routine monitoring of weight, metabolic labs, etc. is indicated. A general rank ordering of antipsychotics that have the greatest to the least risk of metabolic effects is olanzapine, quetiapine, risperidone, ziprasidone, and aripiprazole. However, weight gain can occur with all of these drugs and considerable variability exists among patients receiving the same drug regarding the risk of metabolic effects. Anti-psychotic agents not only increase the risk of metabolic disorder, they also increase the risk of CVA, akathisia, and movement disorders including EPS or tardive dyskinesia (more common with first generation antipsychotics) and more. Elderly- discussed risks, cognition, sedation, falls, metabolic, movement and atypical antipsychotics carry a black-box warning for increased risk of and cerebrovascular events in dementia. Medication Management and Follow-Up - Plan: - Schedule follow-up appointments every 1-3 months to monitor the patient's response to the medication regimen. - Reinforce the importance of avoiding recreational drug use due to potential neurotoxicity and interactions with prescribed medic 05/13/2024 Tobacco use (ICD-10 - Z72.0) Learning About Benefits of Quitting Smoking material was published, Deciding About Using Medicines To Quit Smoking material was published, Stopping Smokeless Tobacco Use: Care Instructions material was published, Quitting Tobacco: Care Instructions material was published presently taking Seroquel 200 mg bedtime and 50 mg and Teachey 300 MG twice a day 1. Bipolar depppression- Seroquel 200 mg bedtime and 50 mg Teachey 300 MG twice a day labs ordered obtain labs PCP AIMS= 0 2 teeth missing 05/13/24 2. Anxiety- mild 3. Primary Insomnia - sleep hygiene 4. Tobacco use Do not smoke. Nicotine and other chemicals in cigarettes and cigars can cause lung damage. Ask your healthcare provider for information if you currently smoke and need help to quit. E-cigarettes or smokeless tobacco still contain nicotine. Talk to your healthcare provider before you use these products. education on decrease to stopping nicotine products and stop smoking hotline given http_s://www.katharina .org/About-Mental -Illness/Mental-H ealth-Conditions http_s://[employer]/depressi on/the-cognitive- jnsjqxpr-sn-irdra ssion#treatments http__s://www.[facility].nih.gov/health/ topics/mental-hea lth-medications http__s://www.nam i.org/About-Menta l-Illness/Treatme nts/Mental-Health -Medications educated on all medications, benefits, side effects and risk, and educated on depression, anxiety, and ADHD, mood d/o and educated on compliance of medications, metabolic and movement d/o education appointment's, continue therapy discussion with patient about course of treatment and patient instructions. education on serotonin syndrome Discussed and educated pt regarding benzodiazepines are generally not intended for prolonged use and that use can cause tolerance, dependence, depression, and associated memory issues including dementias (this list is not exhaustive). Benzodiazepine use is generally not recommended concurrently with pain medications and/or other controlled substances educated on all medications, benefits, side effects and risk, and educated on depression, anxiety, and ADHD, mood d/o and educated on compliance of medications, metabolic and movement d/o education appointment is, continue therapy discussion with patient about course of treatment and patient instructions. education on serotonin syndrome SSRI/SNRI side effects discussed including but not limited to, gastric upset, nausea, vomiting, diarrhea and/or constipation, weight changes, sexual side effects including loss of libido, increased suicidal thoughts/behavior s in children and young adults, and serotonin syndrome. Second generation antipsychotics (SGAs) have metabolic syndrome issues with weight gain, increase in prolactin, increased waist circumference, increased lipids, and increased glucose. Thus routine monitoring of weight, metabolic labs, etc. is indicated. A general rank ordering of antipsychotics that have the greatest to the least risk of metabolic effects is olanzapine, quetiapine, risperidone, ziprasidone, and aripiprazole. However, weight gain can occur with all of these drugs and considerable variability exists among patients receiving the same drug regarding the risk of metabolic effects. Anti-psychotic agents not only increase the risk of metabolic disorder, they also increase the risk of CVA, akathisia, and movement disorders including EPS or tardive dyskinesia (more common with first generation antipsychotics) and more. Elderly- discussed risks, cognition, sedation, falls, metabolic, movement and atypical antipsychotics carry a black-box warning for increased risk of and cerebrovascular events in dementia. Medication Management and Follow-Up - Plan: - Schedule follow-up appointments every 1-3 months to monitor the patient's response to the medication regimen. - Reinforce the importance of avoiding recreational drug use due to potential neurotoxicity and interactions with prescribed medic 11/10/2024 Generalized anxiety disorder (ICD-10 - F41.1) Generalized Anxiety Disorder: Care Instructions material was published, Learning About Generalized Anxiety Disorder material was published, Learning About Anxiety Disorders material was published presently taking Seroquel 200 mg bedtime and 50 mg and Teachey 300 MG twice a day 1. Bipolar depppression- Seroquel 200 mg bedtime and 50 mg Teachey 300 MG twice a day labs ordered obtain labs PCP AIMS= 0 2 teeth missing 05/13/24 2. Anxiety- mild 3. Primary Insomnia - sleep hygiene 4. Tobacco use Do not smoke. Nicotine and other chemicals in cigarettes and cigars can cause lung damage. Ask your healthcare provider for information if you currently smoke and need help to quit. E-cigarettes or smokeless tobacco still contain nicotine. Talk to your healthcare provider before you use these products. education on decrease to stopping nicotine products and stop smoking hotline given Smoking Education Do not smoke. Nicotine and other chemicals in cigarettes and cigars can cause lung damage. Ask your healthcare provider for information if you currently smoke and need help to quit. E-cigarettes or smokeless tobacco still contain nicotine. Talk to your healthcare provider before you use these products. education on decrease to stopping nicotine products and stop smoking hotline given -Quit - Yes [place] Tobacco Quitline Call a Smoking Quitline The [employer] [place]'s Smoking Quitline, (3-087-28S-QUIT) Smokefree.gov, which connects you with your State's Quitline, (4-696-UPRAKBZ) [facility] Smoking Quitline, (5-690-MWZHBWM) 5. Dementia discuss Memory and SLUMS patient reported does not want rx for memory and does not feel anything is wrong with his memory SLUMS= 7 11/10/24 http_s://www.katharina .org/About-Mental -Illness/Mental-H ealth-Conditions http_s://[employer]/depressi on/the-cognitive- qbbjvuos-ed-legib ssion#treatments http__s://www.nim .nih.gov/health/ topics/mental-hea lth-medications http__s://www.nam i.org/About-Menta l-Illness/Treatme nts/Mental-Health -Medications educated on all medications, benefits, side effects and risk, and educated on depression, anxiety, and ADHD, mood d/o and educated on compliance of medications, metabolic and movement d/o education appointment's, continue therapy discussion with patient about course of treatment and patient instructions. education on serotonin syndrome Discussed and educated pt regarding benzodiazepines are generally not intended for prolonged use and that use can cause tolerance, dependence, depression, and associated memory issues including dementias (this list is not exhaustive). Benzodiazepine use is generally not recommended concurrently with pain medications and/or other controlled substances educated on all medications, benefits, side effects and risk, and educated on depression, anxiety, and ADHD, mood d/o and educated on compliance of medications, metabolic and movement d/o education appointment is, continue therapy discussion with patient about course of treatment and patient instructions. education on serotonin syndrome SSRI/SNRI side effects discussed including but not limited to, gastric upset, nausea, vomiting, diarrhea and/or constipation, weight changes, sexual side effects including loss of libido, increased suicidal thoughts/behavior s in children and young adults, and serotonin syndrome. Second generation antipsychotics (SGAs) have metabolic syndrome issues with weight gain, increase in prolactin, increased waist circumference, increased lipids, and increased glucose. Thus routine monitoring of weight, metabolic labs, etc. is indicated. A general rank ordering of antipsychotics that have the greatest to the least risk of metabolic effects is olanzapine, quetiapine, risperidone, ziprasidone, and aripiprazole. However, weight gain can occur with all of these drugs and considerable variability exists among patients receiving the same drug regarding the risk of metabolic effects. Anti-psychotic agents not only increase the risk of metabolic disorder, they also increase the risk of CVA, akathisia, and movement disorders including EPS or tardive dyskinesia (more common with first generation antipsychotics) and more. Elderly- discussed risks, cognition, sedation, falls, metabolic, movement and atypical antipsychotics carry a black-box warning for increased risk of and cerebrovascular events in dementia. Medication Management and Follow-Up - Plan: - Schedule follow-up appointments every 1-3 months to monitor the patient's response to the medication regimen. - Reinforce the importance of avoiding recreational drug use due to potential neurotoxicity and interactions with prescribed medic 11/10/2024 Primary insomnia (ICD-10 - F51.01) Insomnia: Care Instructions material was published, Learning About Sleeping Well material was published presently taking Seroquel 200 mg bedtime and 50 mg and Teachey 300 MG twice a day 1. Bipolar depppression- Seroquel 200 mg bedtime and 50 mg Teachey 300 MG twice a day labs ordered obtain labs PCP AIMS= 0 2 teeth missing 05/13/24 2. Anxiety- mild 3. Primary Insomnia - sleep hygiene 4. Tobacco use Do not smoke. Nicotine and other chemicals in cigarettes and cigars can cause lung damage. Ask your healthcare provider for information if you currently smoke and need help to quit. E-cigarettes or smokeless tobacco still contain nicotine. Talk to your healthcare provider before you use these products. education on decrease to stopping nicotine products and stop smoking hotline given Smoking Education Do not smoke. Nicotine and other chemicals in cigarettes and cigars can cause lung damage. Ask your healthcare provider for information if you currently smoke and need help to quit. E-cigarettes or smokeless tobacco still contain nicotine. Talk to your healthcare provider before you use these products. education on decrease to stopping nicotine products and stop smoking hotline given 36-Quit - Yes [place] Tobacco Quitline Call a Smoking Quitline The [employer] [place]'s Smoking Quitline, (7-107-66S-QUIT) Smokefree.gov, which connects you with your State's Quitline, (0-123-PBVFKUM) Veterans Smoking Quitline, (9-887-JOKZETW) 5. Dementia discuss Memory and SLUMS patient reported does not want rx for memory and does not feel anything is wrong with his memory SLUMS= 7 11/10/24 http_s://www.[facility] .org/About-Mental -Illness/Mental-H ealth-Conditions http_s://psychManpacks.com/depressi on/the-cognitive- rrdsowab-vi-rpuuu ssion#treatments http__s://www.[facility].nih.gov/health/ topics/mental-hea lth-medications http__s://www.nam i.org/About-Menta l-Illness/Treatme nts/Mental-Health -Medications educated on all medications, benefits, side effects and risk, and educated on depression, anxiety, and ADHD, mood d/o and educated on compliance of medications, metabolic and movement d/o education appointment's, continue therapy discussion with patient about course of treatment and patient instructions. education on serotonin syndrome Discussed and educated pt regarding benzodiazepines are generally not intended for prolonged use and that use can cause tolerance, dependence, depression, and associated memory issues including dementias (this list is not exhaustive). Benzodiazepine use is generally not recommended concurrently with pain medications and/or other controlled substances educated on all medications, benefits, side effects and risk, and educated on depression, anxiety, and ADHD, mood d/o and educated on compliance of medications, metabolic and movement d/o education appointment is, continue therapy discussion with patient about course of treatment and patient instructions. education on serotonin syndrome SSRI/SNRI side effects discussed including but not limited to, gastric upset, nausea, vomiting, diarrhea and/or constipation, weight changes, sexual side effects including loss of libido, increased suicidal thoughts/behavior s in children and young adults, and serotonin syndrome. Second generation antipsychotics (SGAs) have metabolic syndrome issues with weight gain, increase in prolactin, increased waist circumference, increased lipids, and increased glucose. Thus routine monitoring of weight, metabolic labs, etc. is indicated. A general rank ordering of antipsychotics that have the greatest to the least risk of metabolic effects is olanzapine, quetiapine, risperidone, ziprasidone, and aripiprazole. However, weight gain can occur with all of these drugs and considerable variability exists among patients receiving the same drug regarding the risk of metabolic effects. Anti-psychotic agents not only increase the risk of metabolic disorder, they also increase the risk of CVA, akathisia, and movement disorders including EPS or tardive dyskinesia (more common with first generation antipsychotics) and more. Elderly- discussed risks, cognition, sedation, falls, metabolic, movement and atypical antipsychotics carry a black-box warning for increased risk of and cerebrovascular events in dementia. Medication Management and Follow-Up - Plan: - Schedule follow-up appointments every 1-3 months to monitor the patient's response to the medication regimen. - Reinforce the importance of avoiding recreational drug use due to potential neurotoxicity and interactions with prescribed medic 05/13/2024 Other retirement (current) drug therapy (ICD-10 - Z79.899) Medication Refill: Care Instructions material was published presently taking Seroquel 200 mg bedtime and 50 mg and Teachey 300 MG twice a day 1. Bipolar depppression- Seroquel 200 mg bedtime and 50 mg Teachey 300 MG twice a day labs ordered obtain labs PCP AIMS= 0 2 teeth missing 05/13/24 2. Anxiety- mild 3. Primary Insomnia - sleep hygiene 4. Tobacco use Do not smoke. Nicotine and other chemicals in cigarettes and cigars can cause lung damage. Ask your healthcare provider for information if you currently smoke and need help to quit. E-cigarettes or smokeless tobacco still contain nicotine. Talk to your healthcare provider before you use these products. education on decrease to stopping nicotine products and stop smoking hotline given http_s://www.[facility]ina .org/About-Mental -Illness/Mental-H ealth-Conditions http_s://[facility] [employer] [employer].com/depressi on/the-cognitive- vjcwbbgg-kv-jyztt ssion#treatments http__s://www.nim h.nih.gov/health/ topics/mental-hea lth-medications http__s://www.nam i.org/About-Menta l-Illness/Treatme nts/Mental-Health -Medications educated on all medications, benefits, side effects and risk, and educated on depression, anxiety, and ADHD, mood d/o and educated on compliance of medications, metabolic and movement d/o education appointment's, continue therapy discussion with patient about course of treatment and patient instructions. education on serotonin syndrome Discussed and educated pt regarding benzodiazepines are generally not intended for prolonged use and that use can cause tolerance, dependence, depression, and associated memory issues including dementias (this list is not exhaustive). Benzodiazepine use is generally not recommended concurrently with pain medications and/or other controlled substances educated on all medications, benefits, side effects and risk, and educated on depression, anxiety, and ADHD, mood d/o and educated on compliance of medications, metabolic and movement d/o education appointment is, continue therapy discussion with patient about course of treatment and patient instructions. education on serotonin syndrome SSRI/SNRI side effects discussed including but not limited to, gastric upset, nausea, vomiting, diarrhea and/or constipation, weight changes, sexual side effects including loss of libido, increased suicidal thoughts/behavior s in children and young adults, and serotonin syndrome. Second generation antipsychotics (SGAs) have metabolic syndrome issues with weight gain, increase in prolactin, increased waist circumference, increased lipids, and increased glucose. Thus routine monitoring of weight, metabolic labs, etc. is indicated. A general rank ordering of antipsychotics that have the greatest to the least risk of metabolic effects is olanzapine, quetiapine, risperidone, ziprasidone, and aripiprazole. However, weight gain can occur with all of these drugs and considerable variability exists among patients receiving the same drug regarding the risk of metabolic effects. Anti-psychotic agents not only increase the risk of metabolic disorder, they also increase the risk of CVA, akathisia, and movement disorders including EPS or tardive dyskinesia (more common with first generation antipsychotics) and more. Elderly- discussed risks, cognition, sedation, falls, metabolic, movement and atypical antipsychotics carry a black-box warning for increased risk of and cerebrovascular events in dementia. Medication Management and Follow-Up - Plan: - Schedule follow-up appointments every 1-3 months to monitor the patient's response to the medication regimen. - Reinforce the importance of avoiding recreational drug use due to potential neurotoxicity and interactions with prescribed medic 11/10/2024 Essential (primary) hypertension (ICD-10 - I10) Learning About High Blood Pressure material was published, High Blood Pressure: Care Instructions material was published presently taking Seroquel 200 mg bedtime and 50 mg and Teachey 300 MG twice a day 1. Bipolar depppression- Seroquel 200 mg bedtime and 50 mg Teachey 300 MG twice a day labs ordered obtain labs PCP AIMS= 0 2 teeth missing 05/13/24 2. Anxiety- mild 3. Primary Insomnia - sleep hygiene 4. Tobacco use Do not smoke. Nicotine and other chemicals in cigarettes and cigars can cause lung damage. Ask your healthcare provider for information if you currently smoke and need help to quit. E-cigarettes or smokeless tobacco still contain nicotine. Talk to your healthcare provider before you use these products. education on decrease to stopping nicotine products and stop smoking hotline given Smoking Education Do not smoke. Nicotine and other chemicals in cigarettes and cigars can cause lung damage. Ask your healthcare provider for information if you currently smoke and need help to quit. E-cigarettes or smokeless tobacco still contain nicotine. Talk to your healthcare provider before you use these products. education on decrease to stopping nicotine products and stop smoking hotline given 841-Quit - Yes [place] Tobacco Quitline Call a Smoking Quitline The [employer] [place]'s Smoking Quitline, (5-440-80K-QUIT) Smokefree.gov, which connects you with your [facility]'s Quitline, (4-284-DJQWEEN) [facility] Smoking Quitline, (0-435-ZNGUZUO) 5. Dementia discuss Memory and SLUMS patient reported does not want rx for memory and does not feel anything is wrong with his memory SLUMS= 7 11/10/24 http_s://www.katharina .org/About-Mental -Illness/Mental-H ealth-Conditions http_s://psychcen tral.com/depressi on/the-cognitive- bylpsewe-iq-supot ssion#treatments http__s://www.nim h.nih.gov/health/ topics/mental-hea lth-medications http__s://www.nam i.org/About-Menta l-Illness/Treatme nts/Mental-Health -Medications educated on all medications, benefits, side effects and risk, and educated on depression, anxiety, and ADHD, mood d/o and educated on compliance of medications, metabolic and movement d/o education appointment's, continue therapy discussion with patient about course of treatment and patient instructions. education on serotonin syndrome Discussed and educated pt regarding benzodiazepines are generally not intended for prolonged use and that use can cause tolerance, dependence, depression, and associated memory issues including dementias (this list is not exhaustive). Benzodiazepine use is generally not recommended concurrently with pain medications and/or other controlled substances educated on all medications, benefits, side effects and risk, and educated on depression, anxiety, and ADHD, mood d/o and educated on compliance of medications, metabolic and movement d/o education appointment is, continue therapy discussion with patient about course of treatment and patient instructions. education on serotonin syndrome SSRI/SNRI side effects discussed including but not limited to, gastric upset, nausea, vomiting, diarrhea and/or constipation, weight changes, sexual side effects including loss of libido, increased suicidal thoughts/behavior s in children and young adults, and serotonin syndrome. Second generation antipsychotics (SGAs) have metabolic syndrome issues with weight gain, increase in prolactin, increased waist circumference, increased lipids, and increased glucose. Thus routine monitoring of weight, metabolic labs, etc. is indicated. A general rank ordering of antipsychotics that have the greatest to the least risk of metabolic effects is olanzapine, quetiapine, risperidone, ziprasidone, and aripiprazole. However, weight gain can occur with all of these drugs and considerable variability exists among patients receiving the same drug regarding the risk of metabolic effects. Anti-psychotic agents not only increase the risk of metabolic disorder, they also increase the risk of CVA, akathisia, and movement disorders including EPS or tardive dyskinesia (more common with first generation antipsychotics) and more. Elderly- discussed risks, cognition, sedation, falls, metabolic, movement and atypical antipsychotics carry a black-box warning for increased risk of and cerebrovascular events in dementia. Medication Management and Follow-Up - Plan: - Schedule follow-up appointments every 1-3 months to monitor the patient's response to the medication regimen. - Reinforce the importance of avoiding recreational drug use due to potential neurotoxicity and interactions with prescribed medic 11/10/2024 Tobacco use (ICD-10 - Z72.0) Learning About Benefits of Quitting Smoking material was published, Deciding About Using Medicines To Quit Smoking material was published, Stopping Smokeless Tobacco Use: Care Instructions material was published, Quitting Tobacco: Care Instructions material was published presently taking Seroquel 200 mg bedtime and 50 mg and Teachey 300 MG twice a day 1. Bipolar depppression- Seroquel 200 mg bedtime and 50 mg Teachey 300 MG twice a day labs ordered obtain labs PCP AIMS= 0 2 teeth missing 05/13/24 2. Anxiety- mild 3. Primary Insomnia - sleep hygiene 4. Tobacco use Do not smoke. Nicotine and other chemicals in cigarettes and cigars can cause lung damage. Ask your healthcare provider for information if you currently smoke and need help to quit. E-cigarettes or smokeless tobacco still contain nicotine. Talk to your healthcare provider before you use these products. education on decrease to stopping nicotine products and stop smoking hotline given Smoking Education Do not smoke. Nicotine and other chemicals in cigarettes and cigars can cause lung damage. Ask your healthcare provider for information if you currently smoke and need help to quit. E-cigarettes or smokeless tobacco still contain nicotine. Talk to your healthcare provider before you use these products. education on decrease to stopping nicotine products and stop smoking hotline given 560-Quit - Yes [place] Tobacco Quitline Call a Smoking Quitline The [employer] [place]'s Smoking Quitline, (5-372-40L-QUIT) Smokefree.gov, which connects you with your State's Quitline, (6-899-PPOQOMY) Veterans Smoking Quitline, (0-814-VAFFAAX) 5. Dementia discuss Memory and SLUMS patient reported does not want rx for memory and does not feel anything is wrong with his memory SLUMS= 7 11/10/24 http_s://www.kath[facility]ina .org/About-Mental -Illness/Mental-H ealth-Conditions http_s://psychcen tral.com/depressi on/the-cognitive- qnvxchts-yp-vppfh ssion#treatments http__s://www.nim .nih.gov/health/ topics/mental-hea lth-medications http__s://www.nam i.org/About-Menta l-Illness/Treatme nts/Mental-Health -Medications educated on all medications, benefits, side effects and risk, and educated on depression, anxiety, and ADHD, mood d/o and educated on compliance of medications, metabolic and movement d/o education appointment's, continue therapy discussion with patient about course of treatment and patient instructions. education on serotonin syndrome Discussed and educated pt regarding benzodiazepines are generally not intended for prolonged use and that use can cause tolerance, dependence, depression, and associated memory issues including dementias (this list is not exhaustive). Benzodiazepine use is generally not recommended concurrently with pain medications and/or other controlled substances educated on all medications, benefits, side effects and risk, and educated on depression, anxiety, and ADHD, mood d/o and educated on compliance of medications, metabolic and movement d/o education appointment is, continue therapy discussion with patient about course of treatment and patient instructions. education on serotonin syndrome SSRI/SNRI side effects discussed including but not limited to, gastric upset, nausea, vomiting, diarrhea and/or constipation, weight changes, sexual side effects including loss of libido, increased suicidal thoughts/behavior s in children and young adults, and serotonin syndrome. Second generation antipsychotics (SGAs) have metabolic syndrome issues with weight gain, increase in prolactin, increased waist circumference, increased lipids, and increased glucose. Thus routine monitoring of weight, metabolic labs, etc. is indicated. A general rank ordering of antipsychotics that have the greatest to the least risk of metabolic effects is olanzapine, quetiapine, risperidone, ziprasidone, and aripiprazole. However, weight gain can occur with all of these drugs and considerable variability exists among patients receiving the same drug regarding the risk of metabolic effects. Anti-psychotic agents not only increase the risk of metabolic disorder, they also increase the risk of CVA, akathisia, and movement disorders including EPS or tardive dyskinesia (more common with first generation antipsychotics) and more. Elderly- discussed risks, cognition, sedation, falls, metabolic, movement and atypical antipsychotics carry a black-box warning for increased risk of and cerebrovascular events in dementia. Medication Management and Follow-Up - Plan: - Schedule follow-up appointments every 1-3 months to monitor the patient's response to the medication regimen. 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 Bipolar depppression- Seroquel 200 mg bedtime and 50 mg Teachey 300 MG twice a day labs ordered obtain labs PCP AIMS= 0 2 teeth missing 05/13/24 2. Anxiety- mild 3. Primary Insomnia - sleep hygiene 4. Tobacco use Do not smoke. Nicotine and other chemicals in cigarettes and cigars can cause lung damage. Ask your healthcare provider for information if you currently smoke and need help to quit. E-cigarettes or smokeless tobacco still contain nicotine. Talk to your healthcare provider before you use these products. education on decrease to stopping nicotine products and stop smoking hotline given Smoking Education Do not smoke. Nicotine and other chemicals in cigarettes and cigars can cause lung damage. Ask your healthcare provider for information if you currently smoke and need help to quit. E-cigarettes or smokeless tobacco still contain nicotine. Talk to your healthcare provider before you use these products. education on decrease to stopping nicotine products and stop smoking hotline given -248-Quit - Yes [place] Tobacco Quitline Call a Smoking Quitline The [employer] [place]'s Smoking Quitline, (3-296-30F-QUIT) Smokefree.gov, which connects you with your State's Quitline, (1-926-VYKEQPR) [facility] Smoking Quitline, (6-466-THWZYQT) 5. Dementia discuss Memory and SLUMS patient reported does not want rx for memory and does not feel anything is wrong with his memory SLUMS= 7 11/10/24 http_s://www.katharina .org/About-Mental -Illness/Mental-H ealth-Conditions http_s://psychcen [facility] [employer].com/depressi on/the-cognitive- ejiwdohf-kc-hlqyc ssion#treatments http__s://www.nim h.nih.gov/health/ topics/mental-hea lth-medications http__s://www.nam i.org/About-Menta l-Illness/Treatme nts/Mental-Health -Medications educated on all medications, benefits, side effects and risk, and educated on depression, anxiety, and ADHD, mood d/o and educated on compliance of medications, metabolic and movement d/o education appointment's, continue therapy discussion with patient about course of treatment and patient instructions. education on serotonin syndrome Discussed and educated pt regarding benzodiazepines are generally not intended for prolonged use and that use can cause tolerance, dependence, depression, and associated memory issues including dementias (this list is not exhaustive). Benzodiazepine use is generally not recommended concurrently with pain medications and/or other controlled substances educated on all medications, benefits, side effects and risk, and educated on depression, anxiety, and ADHD, mood d/o and educated on compliance of medications, metabolic and movement d/o education appointment is, continue therapy discussion with patient about course of treatment and patient instructions. education on serotonin syndrome SSRI/SNRI side effects discussed including but not limited to, gastric upset, nausea, vomiting, diarrhea and/or constipation, weight changes, sexual side effects including loss of libido, increased suicidal thoughts/behavior s in children and young adults, and serotonin syndrome. Second generation antipsychotics (SGAs) have metabolic syndrome issues with weight gain, increase in prolactin, increased waist circumference, increased lipids, and increased glucose. Thus routine monitoring of weight, metabolic labs, etc. is indicated. A general rank ordering of antipsychotics that have the greatest to the least risk of metabolic effects is olanzapine, quetiapine, risperidone, ziprasidone, and aripiprazole. However, weight gain can occur with all of these drugs and considerable variability exists among patients receiving the same drug regarding the risk of metabolic effects. Anti-psychotic agents not only increase the risk of metabolic disorder, they also increase the risk of CVA, akathisia, and movement disorders including EPS or tardive dyskinesia (more common with first generation antipsychotics) and more. Elderly- discussed risks, cognition, sedation, falls, metabolic, movement and atypical antipsychotics carry a black-box warning for increased risk of and cerebrovascular events in dementia. Medication Management and Follow-Up - Plan: - Schedule follow-up appointments every 1-3 months to monitor the patient's response to the medication regimen. - Reinforce the importance of avoiding recreational drug use due to potential neurotoxicity and interactions with prescribed medic 11/10/2024 Alzheimer's disease with early onset (ICD-10 - G30.0) presently taking Seroquel 200 mg bedtime and 50 mg and Teachey 300 MG twice a day 1. Bipolar depppression- Seroquel 200 mg bedtime and 50 mg Teachey 300 MG twice a day labs ordered obtain labs PCP AIMS= 0 2 teeth missing 05/13/24 2. Anxiety- mild 3. Primary Insomnia - sleep hygiene 4. Tobacco use Do not smoke. Nicotine and other chemicals in cigarettes and cigars can cause lung damage. Ask your healthcare provider for information if you currently smoke and need help to quit. E-cigarettes or smokeless tobacco still contain nicotine. Talk to your healthcare provider before you use these products. education on decrease to stopping nicotine products and stop smoking hotline given Smoking Education Do not smoke. Nicotine and other chemicals in cigarettes and cigars can cause lung damage. Ask your healthcare provider for information if you currently smoke and need help to quit. E-cigarettes or smokeless tobacco still contain nicotine. Talk to your healthcare provider before you use these products. education on decrease to stopping nicotine products and stop smoking hotline given 318-Quit - Yes [place] Tobacco Quitline Call a Smoking Quitline The [employer] [place]'s Smoking Quitline, (2-150-96T-QUIT) Smokefree.gov, which connects you with your State's Quitline, (6-577-LAJNZXP) [facility] Smoking Quitline, (2-187-AFWJCGP) 5. Dementia discuss Memory and SLUMS patient reported does not want rx for memory and does not feel anything is wrong with his memory SLUMS= 7 11/10/24 http_s://www.katharina .org/About-Mental -Illness/Mental-H ealth-Conditions http_s://psychcen tral.com/depressi on/the-cognitive- lwltcgnc-iw-zakpb ssion#treatments http__s://www.nim h.nih.gov/health/ topics/mental-hea lth-medications http__s://www.nam i.org/About-Menta l-Illness/Treatme nts/Mental-Health -Medications educated on all medications, benefits, side effects and risk, and educated on depression, anxiety, and ADHD, mood d/o and educated on compliance of medications, metabolic and movement d/o education appointment's, continue therapy discussion with patient about course of treatment and patient instructions. education on serotonin syndrome Discussed and educated pt regarding benzodiazepines are generally not intended for prolonged use and that use can cause tolerance, dependence, depression, and associated memory issues including dementias (this list is not exhaustive). Benzodiazepine use is generally not recommended concurrently with pain medications and/or other controlled substances educated on all medications, benefits, side effects and risk, and educated on depression, anxiety, and ADHD, mood d/o and educated on compliance of medications, metabolic and movement d/o education appointment is, continue therapy discussion with patient about course of treatment and patient instructions. education on serotonin syndrome SSRI/SNRI side effects discussed including but not limited to, gastric upset, nausea, vomiting, diarrhea and/or constipation, weight changes, sexual side effects including loss of libido, increased suicidal thoughts/behavior s in children and young adults, and serotonin syndrome. Second generation antipsychotics (SGAs) have metabolic syndrome issues with weight gain, increase in prolactin, increased waist circumference, increased lipids, and increased glucose. Thus routine monitoring of weight, metabolic labs, etc. is indicated. A general rank ordering of antipsychotics that have the greatest to the least risk of metabolic effects is olanzapine, quetiapine, risperidone, ziprasidone, and aripiprazole. However, weight gain can occur with all of these drugs and considerable variability exists among patients receiving the same drug regarding the risk of metabolic effects. Anti-psychotic agents not only increase the risk of metabolic disorder, they also increase the risk of CVA, akathisia, and movement disorders including EPS or tardive dyskinesia (more common with first generation antipsychotics) and more. Elderly- discussed risks, cognition, sedation, falls, metabolic, movement and atypical antipsychotics carry a black-box warning for increased risk of and cerebrovascular events in dementia. Medication Management and Follow-Up - Plan: - Schedule follow-up appointments every 1-3 months to monitor the patient's response to the medication regimen. - Reinforce the importance of avoiding recreational drug use due to potential neurotoxicity and interactions with prescribed medic 11/10/2024 Dementia in other diseases classified elsewhere, moderate, with mood disturbance (ICD-10 - F02.B3) presently taking Seroquel 200 mg bedtime and 50 mg and Teachey 300 MG twice a day 1. Bipolar depppression- Seroquel 200 mg bedtime and 50 mg Teachey 300 MG twice a day labs ordered obtain labs PCP AIMS= 0 2 teeth missing 05/13/24 2. Anxiety- mild 3. Primary Insomnia - sleep hygiene 4. Tobacco use Do not smoke. Nicotine and other chemicals in cigarettes and cigars can cause lung damage. Ask your healthcare provider for information if you currently smoke and need help to quit. E-cigarettes or smokeless tobacco still contain nicotine. Talk to your healthcare provider before you use these products. education on decrease to stopping nicotine products and stop smoking hotline given Smoking Education Do not smoke. Nicotine and other chemicals in cigarettes and cigars can cause lung damage. Ask your healthcare provider for information if you currently smoke and need help to quit. E-cigarettes or smokeless tobacco still contain nicotine. Talk to your healthcare provider before you use these products. education on decrease to stopping nicotine products and stop smoking hotline given 763-Quit - Yes [place] Tobacco Quitline Call a Smoking Quitline The [employer] [place]'s Smoking Quitline, (3-583-53L-QUIT) Smokefree.gov, which connects you with your [facility]'s Quitline, (7-743-PFEVUFV) [facility] Smoking Quitline, (7-873-WKFYMZI) 5. Dementia discuss Memory and SLUMS patient reported does not want rx for memory and does not feel anything is wrong with his memory SLUMS= 7 11/10/24 http_s://www.katharina .org/About-Mental -Illness/Mental-H ealth-Conditions http_s://psychcen tral.com/depressi on/the-cognitive- ohdabber-fz-mudzg ssion#treatments http__s://www.[facility].nih.gov/health/ topics/mental-hea lth-medications http__s://www.nam i.org/About-Menta l-Illness/Treatme nts/Mental-Health -Medications educated on all medications, benefits, side effects and risk, and educated on depression, anxiety, and ADHD, mood d/o and educated on compliance of medications, metabolic and movement d/o education appointment's, continue therapy discussion with patient about course of treatment and patient instructions. education on serotonin syndrome Discussed and educated pt regarding benzodiazepines are generally not intended for prolonged use and that use can cause tolerance, dependence, depression, and associated memory issues including dementias (this list is not exhaustive). Benzodiazepine use is generally not recommended concurrently with pain medications and/or other controlled substances educated on all medications, benefits, side effects and risk, and educated on depression, anxiety, and ADHD, mood d/o and educated on compliance of medications, metabolic and movement d/o education appointment is, continue therapy discussion with patient about course of treatment and patient instructions. education on serotonin syndrome SSRI/SNRI side effects discussed including but not limited to, gastric upset, nausea, vomiting, diarrhea and/or constipation, weight changes, sexual side effects including loss of libido, increased suicidal thoughts/behavior s in children and young adults, and serotonin syndrome. Second generation antipsychotics (SGAs) have metabolic syndrome issues with weight gain, increase in prolactin, increased waist circumference, increased lipids, and increased glucose. Thus routine monitoring of weight, metabolic labs, etc. is indicated. A general rank ordering of antipsychotics that have the greatest to the least risk of metabolic effects is olanzapine, quetiapine, risperidone, ziprasidone, and aripiprazole. However, weight gain can occur with all of these drugs and considerable variability exists among patients receiving the same drug regarding the risk of metabolic effects. Anti-psychotic agents not only increase the risk of metabolic disorder, they also increase the risk of CVA, akathisia, and movement disorders including EPS or tardive dyskinesia (more common with first generation antipsychotics) and more. Elderly- discussed risks, cognition, sedation, falls, metabolic, movement and atypical antipsychotics carry a black-box warning for increased risk of and cerebrovascular events in dementia. Medication Management and Follow-Up - Plan: - Schedule follow-up appointments every 1-3 months to monitor the patient's response to the medication regimen. - Reinforce the importance of avoiding recreational drug use due to potential neurotoxicity and interactions with prescribed medic 05/13/2024 Other Quetiapine Oral Tablet (QUETIAPINE - ORAL) material was published, Teachey Carbonate Oral Capsule (LITHIUM - ORAL) material was published presently taking Seroquel 200 mg bedtime and 50 mg and Teachey 300 MG twice a day 1. Bipolar depppression- Seroquel 200 mg bedtime and 50 mg Teachey 300 MG twice a day labs ordered obtain labs PCP AIMS= 0 2 teeth missing 05/13/24 2. Anxiety- mild 3. Primary Insomnia - sleep hygiene 4. Tobacco use Do not smoke. Nicotine and other chemicals in cigarettes and cigars can cause lung damage. Ask your healthcare provider for information if you currently smoke and need help to quit. E-cigarettes or smokeless tobacco still contain nicotine. Talk to your healthcare provider before you use these products. education on decrease to stopping nicotine products and stop smoking hotline given http_s://www.katharina .org/About-Mental -Illness/Mental-H ealth-Conditions http_s://psychcen [employer].com/depressi on/the-cognitive- iyjnbthp-qz-fbaii ssion#treatments http__s://www.[facility].nih.gov/health/ topics/mental-hea lth-medications http__s://www.nam i.org/About-Menta l-Illness/Treatme nts/Mental-Health -Medications educated on all medications, benefits, side effects and risk, and educated on depression, anxiety, and ADHD, mood d/o and educated on compliance of medications, metabolic and movement d/o education appointment's, continue therapy discussion with patient about course of treatment and patient instructions. education on serotonin syndrome Discussed and educated pt regarding benzodiazepines are generally not intended for prolonged use and that use can cause tolerance, dependence, depression, and associated memory issues including dementias (this list is not exhaustive). Benzodiazepine use is generally not recommended concurrently with pain medications and/or other controlled substances educated on all medications, benefits, side effects and risk, and educated on depression, anxiety, and ADHD, mood d/o and educated on compliance of medications, metabolic and movement d/o education appointment is, continue therapy discussion with patient about course of treatment and patient instructions. education on serotonin syndrome SSRI/SNRI side effects discussed including but not limited to, gastric upset, nausea, vomiting, diarrhea and/or constipation, weight changes, sexual side effects including loss of libido, increased suicidal thoughts/behavior s in children and young adults, and serotonin syndrome. Second generation antipsychotics (SGAs) have metabolic syndrome issues with weight gain, increase in prolactin, increased waist circumference, increased lipids, and increased glucose. Thus routine monitoring of weight, metabolic labs, etc. is indicated. A general rank ordering of antipsychotics that have the greatest to the least risk of metabolic effects is olanzapine, quetiapine, risperidone, ziprasidone, and aripiprazole. However, weight gain can occur with all of these drugs and considerable variability exists among patients receiving the same drug regarding the risk of metabolic effects. Anti-psychotic agents not only increase the risk of metabolic disorder, they also increase the risk of CVA, akathisia, and movement disorders including EPS or tardive dyskinesia (more common with first generation antipsychotics) and more. Elderly- discussed risks, cognition, sedation, falls, metabolic, movement and atypical antipsychotics carry a black-box warning for increased risk of and cerebrovascular events in dementia. Medication Management and Follow-Up - Plan: - Schedule follow-up appointments every 1-3 months to monitor the patient's response to the medication regimen. - Reinforce the importance of avoiding recreational drug use due to potential neurotoxicity and interactions with prescribed medic 11/10/2024 Other referral to the local chapter or national office of the Alzheimer's Association ( ; http://www.alz. org), the Alzheimer's Disease Education [facility] Referral [facility] (ADEAR) ( ; http://www.arturo. nih.gov/Alzheim ers/), presently taking Seroquel 200 mg bedtime and 50 mg and Teachey 300 MG twice a day 1. Bipolar depppression- Seroquel 200 mg bedtime and 50 mg Teachey 300 MG twice a day labs ordered obtain labs PCP AIMS= 0 2 teeth missing 05/13/24 2. Anxiety- mild 3. Primary Insomnia - sleep hygiene 4. Tobacco use Do not smoke. Nicotine and other chemicals in cigarettes and cigars can cause lung damage. Ask your healthcare provider for information if you currently smoke and need help to quit. E-cigarettes or smokeless tobacco still contain nicotine. Talk to your healthcare provider before you use these products. education on decrease to stopping nicotine products and stop smoking hotline given Smoking Education Do not smoke. Nicotine and other chemicals in cigarettes and cigars can cause lung damage. Ask your healthcare provider for information if you currently smoke and need help to quit. E-cigarettes or smokeless tobacco still contain nicotine. Talk to your healthcare provider before you use these products. education on decrease to stopping nicotine products and stop smoking hotline given 93-Quit - Yes [place] Tobacco Quitline Call a Smoking Quitline The [employer] [place]'s Smoking Quitline, (7-304-50S-QUIT) Smokefree.gov, which connects you with your State's Quitline, (8-082-JVGSUQD) [facility] Smoking Quitline, (1-444-MKQGUOU) 5. Dementia discuss Memory and SLUMS patient reported does not want rx for memory and does not feel anything is wrong with his memory SLUMS= 7 11/10/24 http_s://www.katharina .org/About-Mental -Illness/Mental-H ealth-Conditions http_s://[employer]/depressi on/the-cognitive- abjdzguo-pi-kuige ssion#treatments http__s://www.nim .nih.gov/health/ topics/mental-hea lth-medications http__s://www.nam i.org/About-Menta l-Illness/Treatme nts/Mental-Health -Medications educated on all medications, benefits, side effects and risk, and educated on depression, anxiety, and ADHD, mood d/o and educated on compliance of medications, metabolic and movement d/o education appointment's, continue therapy discussion with patient about course of treatment and patient instructions. education on serotonin syndrome Discussed and educated pt regarding benzodiazepines are generally not intended for prolonged use and that use can cause tolerance, dependence, depression, and associated memory issues including dementias (this list is not exhaustive). Benzodiazepine use is generally not recommended concurrently with pain medications and/or other controlled substances educated on all medications, benefits, side effects and risk, and educated on depression, anxiety, and ADHD, mood d/o and educated on compliance of medications, metabolic and movement d/o education appointment is, continue therapy discussion with patient about course of treatment and patient instructions. education on serotonin syndrome SSRI/SNRI side effects discussed including but not limited to, gastric upset, nausea, vomiting, diarrhea and/or constipation, weight changes, sexual side effects including loss of libido, increased suicidal thoughts/behavior s in children and young adults, and serotonin syndrome. Second generation antipsychotics (SGAs) have metabolic syndrome issues with weight gain, increase in prolactin, increased waist circumference, increased lipids, and increased glucose. Thus routine monitoring of weight, metabolic labs, etc. is indicated. A general rank ordering of antipsychotics that have the greatest to the least risk of metabolic effects is olanzapine, quetiapine, risperidone, ziprasidone, and aripiprazole. However, weight gain can occur with all of these drugs and considerable variability exists among patients receiving the same drug regarding the risk of metabolic effects. Anti-psychotic agents not only increase the risk of metabolic disorder, they also increase the risk of CVA, akathisia, and movement disorders including EPS or tardive dyskinesia (more common with first generation antipsychotics) and more. Elderly- discussed risks, cognition, sedation, falls, metabolic, movement and atypical antipsychotics carry a black-box warning for increased risk of and cerebrovascular events in dementia. Medication Management and Follow-Up - Plan: - Schedule follow-up appointments every 1-3 months to monitor the patient's response to the medication regimen. - Reinforce the importance of avoiding recreational drug use due to potential neurotoxicity and interactions with prescribed medic Plan Of Treatment Future Test Test Name Order Date Teachey (Eskalith), Serum 05/13/2024 Liver Function Test (LFT) 05/13/2024 COMPREHENSIVE METABOLIC PANEL (59022) CBC (INCLUDES DIFF/PLT) (6399) 4 HEMOGLOBIN A1c (496) 05/13/2024 TSH W/REFLEX TO FT4 (57697) 05/13/2024 Teachey (Eskalith), Serum 11/10/2024 LIPID PANEL WITH REFLEX TO DIRECT LDL (1 4852) 11/10/2024 COMPREHENSIVE METABOLIC PANEL (50854) CBC (INCLUDES DIFF/PLT) (6399) 5 HEMOGLOBIN A1c (496) 11/10/2024 TSH W/REFLEX TO FT4 (65700) 11/10/2024 Next Appt Details Provider Name:Flavia Smith , 02/02/2025 09:15:00 AM, [address], [address], [place], [address], Insurance Providers Payer Name Payer Address Payer Phone Subscriber Number Group Number Insured Name Patient Relationship to Insured Coverage Start Date Coverage End Date Medicare-I l Medicare [address] [place] [phone] [id number] PERRY, TALI Self - patient is the insured [facility] [address] [place] [address] [id number] SHERI PERRY Spouse - patient is the spouse of the insured Medical (General) History Medical History History ICD Code Problems: Alcoholism Bipolar disorder Bipolar I disorder, most recent episode depression Generalized anxiety disorder Long-term drug therapy Mild recurrent major depression Primary insomnia Tobacco user ,
--- OUTSIDE RECORDS SUMMARY | 2024-12-29 07:14 | XMS_ITS | Referral Summary ---
Author Organization [facility] [address] [facility] Address [address] [place] [address] Care Team Providers Care Road Traffic Controller Name Role Phone Umm Dawn Primary Care Provider [phone] Encounters Date Type Department Care Team Description 11/22/2024 Orders Only [facility] Medicine [address] [place] [address] [place] [phone] Umm Dawn PA Abdomen enlarged (Primary Dx) 11/22/2024 Telephone [facility] Medicine [address] [place] [address] [place] [phone] mUm Dawn PA Medical Question/Miscellaneous 11/08/[address] [place] [phone] Umm Dawn PA Medical Question/Miscellaneous 11/07/2024 Telephone [facility] Medicine [address] [place] [address] Road [address] [place] [phone] Umm Dawn PA Medical Question/Miscellaneous from Last 3 Months Allergies No known active allergies Medications aspirin 81 mg chewable tablet Take 1 tablet (81 mg total) by mouth daily 1 Active lithium 300 mg capsule TAKE 1 CAPSULE BY MOUTH TWICE A DAY WITH MEALS 60 capsule 0 Active QUEtiapine (SEROquel) 200 mg tablet Take 1 tablet (200 mg total) by mouth nightly Active budesonide-gly copyr-formoter ol (Breztri Aerosphere) 160-9-4.8 mcg/actuation inhaler Inhale 2 puffs 2 (two) times a day 3 each 1 4 Active albuterol HFA (PROVENTIL HFA,VENTOLIN HFA,PROAIR HFA) 90 mcg/actuation inhalerIndicat ions:SOB (shortness of breath) Inhale 2 puffs every 6 (six) hours as needed for wheezing 3 each 1 4 025 Active guaiFENesin-co deine (GUAITUSS AC) liquid 100-10 mg/5 mLIndications: Acute cough Take 5-10 mL by mouth every 4 (four) hours as needed for cough 120 mL 4 Active gabapentin (NEURONTIN) 300 mg capsuleIndicat ions:Neuropath y TAKE 1 CAPSULE BY MOUTH THREE TIMES A DAY 270 capsule 1 5 Active spironolactone -hydroCHLOROth iazide (ALDACTAZIDE) 25-25 mg per tablet TAKE 1 TABLET BY MOUTH EVERY DAY 90 tablet 1 5 Active benazepriL (LOTENSIN) 40 mg tablet TAKE 1 TABLET BY MOUTH TWICE A DAY 180 tablet 5 Active spironolactone -hydroCHLOROth iazide (ALDACTAZIDE) 25-25 mg per tablet TAKE 1 TABLET BY MOUTH EVERY DAY 90 tablet 1 4 025 Discontinued benazepriL (LOTENSIN) 40 mg tablet TAKE 1 TABLET BY MOUTH TWICE A DAY 180 tablet 5 025 Discontinued Active Problems Problem Noted Date Diagnosed Date Colon cancer screening 09/27/2024 Assessment & Plan (09/27/2024 10:08 PM CDT): Patient past due for colon cancer screening. Refer to GI to hopefully complete EGD and colonoscopy on the same day Other dysphagia 09/27/2024 Assessment & Plan (09/27/2024 10:08 PM CDT): Patient has noticed increased dysphagia especially with food getting stuck. Knocked his 2 front teeth out so this is made chewing a little more difficult. Recommend referral to GI for EGD. Concerned he could have esophageal varices so would recommend evaluation. He is past due for colon cancer screening. Try to connect these 2 at the same time. Referral placed Obesity (BMI 30.0-34.9) 09/27/2024 Assessment & Plan (09/27/2024 10:05 PM CDT): Discussed the patient's BMI. The BMI is above average. BMI management plan is completed. BMI Follow-up includes: nutrition counseling, exercise counseling and education provided. BMI 30.0-30.9,adult 09/15/2024 Assessment & Plan (09/15/2024 10:38 AM CDT): Discussed the patient's BMI. The BMI is above average. BMI management plan is completed. BMI Follow-up includes: nutrition counseling, exercise counseling and education provided. Chronic obstructive pulmonary disease 10/05/2023 Assessment & Plan (09/27/2024 10:08 PM CDT): Long-term smoker prior. Probable COPD. Continue Breztri and albuterol p.r.n. Assessment & Plan (11/03/2023 2:36 PM CDT): Persistent symptoms. Strongly encouraged complete smoking cessation which he has not interested in. Continue with the Breztri b.I.d. and albuterol as needed. I have offered pulmonology consult, CT and or running PFTs and he is declined all. May follow up any time if he changes his mind Assessment & Plan (10/05/2023 9:47 AM CDT): Patient has probable COPD based on his longstanding smoking history. Will start him on inhalers and may benefit from follow-up with pulmonology. Stressed the importance of complete smoking cessation but he is not ready to quit at this time Claudication 02/19/2023 Assessment & Plan (02/19/2023 8:26 PM CDT): This is a significant, separately identifiable problem that was evaluated and managed on the same day as the wellness exam Patient is complaining of claudication like symptoms. These sound different than the neuropathy that he had been experiencing which could be secondary to B12 and alcoholism. Recommend ABIs for vascular studies of his arterial system. Will follow-up pending those results Stressed the importance of smoking cessation as this can contribute to vascular issues. He has definite varicose veins but states these are not bothering him Medicare annual wellness visit, subsequent 12/26 Assessment & Plan (09/27/2024 10:08 PM CDT): Encouraged healthy lifestyle, good nutrition and exercise. Encouraged Calcium and Vitamin D and weight bearing exercise for bone health. Reviewed immunizations. Reviewed age appropirate screenings. Medicare Wellness Documentation is completed within the chart Assessment & Plan (02/19/2023 8:25 PM CDT): Encouraged healthy lifestyle, good nutrition and exercise. Encouraged Calcium and Vitamin D and weight bearing exercise for bone health. Reviewed immunizations. Reviewed age appropirate screenings. Medicare Wellness Documentation is completed within the chart Assessment & Plan (12/27/2021 9:51 PM CDT): Encouraged healthy lifestyle, good nutrition and exercise. Encouraged Calcium and Vitamin D and weight bearing exercise for bone health. Reviewed immunizations. Reviewed age appropirate screenings. Medicare Wellness Documentation is completed within the chart Alcoholism 03/02/2021 Assessment & Plan (09/27/2024 10:07 PM CDT): Patient with longstanding history of alcoholism. States he has finished rehab multiple times. Still drinks s ome would not quantify. Encouraged complete cessation. Ordered liver ultrasound last year as he states he has a history of cirrhosis but have been unable to get him to go to get imaging done to confirm a diagnosis and develop a plan. Assessment & Plan (11/03/2023 2:34 PM CDT): Patient with a longstanding history of alcoholism. He has not had any imaging of the abdomen today recommend starting with abdominal ultrasound. He is also past due for labs Assessment & Plan (02/19/2023 8:24 PM CDT): Patient is still an alcoholic. Has gone through rehab few years ago. States he still drinks s ome would quantify. Strongly encouraged complete cessation. Assessment & Plan (12/27/2021 9:50 PM CDT): Encouraged complete cessation. Offered assistance which he declines at this time Assessment & Plan (03/02/2021 9:31 PM CDT): Encouraged cessation Mixed hyperlipidemia 03/02/2021 Assessment & Plan (09/27/2024 10:05 PM CDT): Encouraged patient to follow low fat/low chol diet like the Mediterranean diet. Increase good fats in the diet. Increase exercise. Monitor labs as needed. Need labs to check stability of his lipid panel Assessment & Plan (11/03/2023 2:35 PM CDT): Check labs Assessment & Plan (02/19/2023 8:25 PM CDT): Encouraged patient to follow low fat/low chol diet like the Mediterranean diet. Increase good fats in the diet. Increase exercise. Monitor labs as needed. Assessment & Plan (12/27/2021 9:51 PM CDT): Encouraged patient to follow low fat/low chol diet like the Mediterranean diet. Increase good fats in the diet. Increase exercise. Monitor labs as needed. Currently diet controlled Assessment & Plan (03/02/2021 9:36 PM CDT): Encouraged patient to follow fat/low chol diet like the Mediterranean diet. Increase good fats in the diet. Increase exercise. Monitor labs Irregular heart beat 03/02/2021 Assessment & Plan (03/02/2021 9:35 PM CDT): EKG was the same as 2015. Encouraged to followup with Cardio. He will consider. He currently denies and cardiac symptoms. Neuropathy 05/29/2019 Assessment & Plan (10/05/2023 9:46 AM CDT): Continue gabapentin 300 mg t.i.d. as symptoms are stable Assessment & Plan (02/19/2023 8:24 PM CDT): Patient has noticed decrease in numbness and tingling of the legs since starting gabapentin 300 mg t.i.d.. Will continue with the same dose. Assessment & Plan (12/27/2021 9:50 PM CDT): Continue gabapentin. Assessment & Plan (03/02/2021 9:31 PM CDT): Continue gabapentin Assessment & Plan (05/11/2020 12:17 PM FIELD CANE SCALE CLERK): Continue gabapentin Assessment & Plan (05/29/2019 10:36 PM FIELD CANE SCALE CLERK): Check labs. Continue gabapentin prn. Cigarette smoker 02/14/2019 Assessment & Plan (09/27/2024 10:06 PM CDT): Encouraged smoking cessation. Discussed 3 minutes. Reviewed options for assistance with cessation. Reviewed pinmaker sequela associated with smoking. Pt declines assistance at this time but may contact the office at anytime for further help as they desire. Patient declines low-dose CT Assessment & Plan (11/03/2023 2:34 PM CDT): Encouraged smoking cessation. Discussed 3 minutes. Reviewed options for assistance with cessation. Reviewed pinmaker sequela associated with smoking. Pt declines assistance at this time but may contact the office at anytime for further help as they desire. Patient declines low-dose CT for screening Assessment & Plan (10/05/2023 9:46 AM CDT): Encouraged smoking cessation. Discussed 3 minutes. Reviewed options for assistance with cessation. Reviewed shelter sequela associated with smoking. Pt declines assistance at this time but may contact the office at anytime for further help as they desire. Assessment & Plan (02/19/2023 8:25 PM CDT): Encouraged smoking cessation. Discussed 3 minutes. Reviewed options for assistance with cessation. Reviewed pinmaker sequela associated with smoking. Pt declines assistance at this time but may contact the office at anytime for further help as they desire. Assessment & Plan (12/27/2021 9:49 PM CDT): Encouraged smoking cessation. Discussed 3 minutes. Reviewed options for assistance with cessation. Reviewed pinmaker sequela associated with smoking. Pt declines assistance at this time but may contact the office at anytime for further help as they desire. Offered low-dose CT for lung cancer screening he declines. Assessment & Plan (03/02/2021 9:34 PM CDT): Encouraged smoking cessation. Discussed 3 minutes. Reviewed options for assistance with cessation. Reviewed shelter sequela associated with smoking. Pt declines assistance at this time but may contact the office at anytime for further help as they desire. b Not interested in LDCT for lung cancer screening Assessment & Plan (05/11/2020 12:18 PM FIELD CANE SCALE CLERK): Encouraged smoking cessation. Discussed 3 minutes. Reviewed options for assistance with cessation. Reviewed shelter sequela associated with smoking. Pt declines assistance at this time but may contact the office at anytime for further help as they desire. Assessment & Plan (05/29/2019 10:35 PM FIELD CANE SCALE CLERK): Encouraged smoking cessation. Discussed 3 minutes. Reviewed options for assistance with cessation. Reviewed pinmaker sequela associated with smoking. Pt declines assistance at this time but may contact the office at anytime for further help as they desire. Assessment & Plan (02/14/2019 8:35 PM CDT): 50 years 1/2 - 1ppd Discussed LDCT. He will consider. Encouraged smoking cessation. Discussed approx 3 minutes. B12 deficiency 02/14/2019 Assessment & Plan (09/27/2024 10:06 PM CDT): Supplement Assessment & Plan (05/11/2020 12:17 PM FIELD CANE SCALE CLERK): Continue supplement Assessment & Plan (02/14/2019 8:33 PM CDT): Continue supplement. Check labs Smokers' cough 02/14/2019 Assessment & Plan (09/27/2024 10:06 PM CDT): Persistent smoker's cough. Patient is not interested in stopping. He is on Breztri and albuterol PRN Assessment & Plan (11/03/2023 2:34 PM CDT): Persistent smoker's cough. Is on Breztri albuterol p.r.n.. He has not sure if he has seeing a significant difference. Offered referral to pulmonology for further evaluation. He declined. Offered PFTs he declined. Offered CT to have imaging and he also declined Assessment & Plan (02/14/2019 8:33 PM CDT): Encouraged cessation. He denies ever being tested for COPD. detention smoker Prostate cancer screening 02/14/2019 Assessment & Plan (09/27/2024 10:05 PM CDT): Check labs. Order was given prior to this visit. It is still good Assessment & Plan (11/03/2023 2:35 PM CDT): Check labs Family history of heart disease 02/14/2019 Assessment & Plan (02/14/2019 8:36 PM CDT): Check lipid panel Hyperglycemia 02/14/2019 Assessment & Plan (09/27/2024 10:05 PM CDT): Check labs Assessment & Plan (11/03/2023 2:35 PM CDT): Check labs Assessment & Plan (03/02/2021 9:29 PM CDT): Pre-diabetes/hyperglycemia is a precursor to Dm. Stressed importance of working on diet (decrease your simple sugars and one carbohydrate with each meal) and increase you exercise to achieve weight loss and this will help prevent you from progressing to diabetes. Assessment & Plan (05/11/2020 12:17 PM FIELD CANE SCALE CLERK): Monitor labs Assessment & Plan (02/14/2019 8:34 PM CDT): This is a significant, separately identifiable problem that was evaluated and managed on the same day as the wellness exam Pre-diabetes is a precursor to Dm. Stressed importance of working on diet (decrease your simple sugars and one carbohydrate with each meal) and increase you exercise to achieve weight loss and this will help prevent you from progressing to diabetes. Elevated MCV 02/14/2019 Assessment & Plan (03/02/2021 9:30 PM CDT): Continue to monitor -- probably secondary to alcohol Assessment & Plan (05/11/2020 12:17 PM FIELD CANE SCALE CLERK): Improving since stopping alcohol Assessment & Plan (02/14/2019 8:34 PM CDT): Check labs Moderate episode of recurrent major depressive d isorder 02/14/2019 Assessment & Plan (09/27/2024 10:06 PM CDT): Patient seems to have depression bipolar. See psychiatrleonidas Rivera on the nurse practitioner he still thinks he is on lithium and Seroquel but I do not have documentation of this Assessment & Plan (10/05/2023 9:46 AM CDT): Continue per Flavia 3 nurse practitioner with Psychiatry. Assessment & Plan (12/27/2021 9:50 PM CDT): Depression and probable bipolar. Managed by psychiatrleonidas Li. He is on lithium and Seroquel managed by PREETI Smith Assessment & Plan (05/11/2020 12:18 PM FIELD CANE SCALE CLERK): Continue per psychiatry Assessment & Plan (05/29/2019 10:35 PM FIELD CANE SCALE CLERK): Encouraged establishing with Psychiatry as pt is on [employer]. Assessment & Plan (02/14/2019 8:40 PM CDT): This is a significant, separately identifiable problem that was evaluated and managed on the same day as the wellness exam Patient has depression anxiety symptoms but I question additional mental health diagnosis. Provided him names of psychiatrist in the area so that he can immediately established with a psychiatrist. He has enough medicine for a few months from his psychiatrist in [facility] fill so strongly encouraged him set the appointment as soon as possible so he can reestablish. Essential (primary) hypertension 11/11/2016 Assessment & Plan (09/27/2024 10:05 PM CDT): Bp is stable/in acceptable range for any co-morbidities. Encouraged to limit sodium intake and exercise for weight control. Continue benazepril spur tone and hydrochlorothiazide Assessment & Plan (10/05/2023 9:47 AM CDT): BP is elevated today but he is not feeling well and coughing quite a bit. Encouraged to limit sodium intake and exercise for weight control. Continue benazepril 40 and spironolactone/hydrochlorothiazide 25/25 Recheck blood pressure at next visit in 3-4 weeks. Assessment & Plan (02/19/2023 8:25 PM CDT): Bp is stable/in acceptable range for any co-morbidities. Encouraged to limit sodium intake and exercise for weight control. Continue lisinopril spironolactone hydrochlorothiazide Assessment & Plan (12/27/2021 9:55 PM CDT): Bp is stable/in acceptable range for any co-morbidities. Encouraged to limit sodium intake and exercise for weight control. Continue benazepril spironolactone hydrochlorothiazide Bradycardia 11/11/2016 Resolved Problems Problem Noted Date Diagnosed Date Resolved Date Chronic cough 10/05/2023 11/03/2023 Assessment & Plan (10/05/2023 9:46 AM CDT): Patient has had a chronic cough for the last 2 months. He has been a long-time smoker. Still smoking 15 cigarettes a day. He has no desire to stop. He has probable COPD but question could he also has exacerbation versus pneumonia versus other etiology. Recommend a chest x-ray. He plans to go to [facility] here in [place]. We will await results. Will start on breasts tree daily with albuterol p.r.n.. I suspect he will need an antibiotic and possibly a steroid to help get over his symptoms. Will discuss a low-dose CT versus a CT after this clears due to his long-term smoking history. He has persistently declined doing a low-dose CT for screening Need for vaccination for Strep pneumoniae 02/19/2023 10/05/2023 Assessment & Plan (02/19/2023 8:25 PM CDT): Pneumonia 20 updated in the office today BMI 28.0-28.9,adult 02/19/2023 10/05/19 24 Assessment & Plan (02/19/2023 8:26 PM CDT): Weight/BMI is in healthy range. Continue healthy lifestyle to maintain. Need for vaccination with 13 -polyvalent pneumococcal conjugate vaccine 12/27/2021 3 Assessment & Plan (12/27/2021 9:55 PM CDT): Prevnar 13 updated in office today Colon cancer screening declined 12/27/2021 09/27/2024 Assessment & Plan (02/19/2023 8:25 PM CDT): Patient refuses colon cancer screening. Reviewed importance of early detection Assessment & Plan (12/27/2021 9:55 PM CDT): Reviewed importance of screening. Pt voiced understanding. BMI 29.0-29.9,adult 02/20/2021 02/20/20 23 Assessment & Plan (12/27/2021 9:50 PM CDT): Weight/BMI is in healthy range. Continue healthy lifestyle to maintain. Assessment & Plan (02/20/2021 3:40 PM CDT): Weight/BMI is in healthy range. Continue healthy lifestyle to maintain. Medicare annual wellness visit, subsequent 05/11/2020 03/02/2021 Assessment & Plan (05/11/2020 12:18 PM FIELD CANE SCALE CLERK): Encouraged healthy lifestyle, good nutrition and exercise. Encouraged Calcium and Vitamin D and weight bearing exercise for bone health. Reviewed immunizations. Reviewed age appropirate screenings. Medicare Wellness Documentation is completed within the chart Need for immunization against influenza 05/11/2020 03/02/2021 Assessment & Plan (05/11/2020 12:19 PM FIELD CANE SCALE CLERK): Updated in office BMI 29.0-29.9,adult 02/14/2019 09/28/19 25 Assessment & Plan (11/03/2023 2:35 PM CDT): Weight/BMI is in healthy range. Continue healthy lifestyle to maintain. Assessment & Plan (10/05/2023 9:46 AM CDT): Weight/BMI is in healthy range. Continue healthy lifestyle to maintain. Assessment & Plan (05/11/2020 12:18 PM FIELD CANE SCALE CLERK): Weight/BMI is in healthy range. Continue healthy lifestyle to maintain. Assessment & Plan (05/29/2019 10:35 PM FIELD CANE SCALE CLERK): Weight/BMI is in healthy range. Continue healthy lifestyle to maintain. Assessment & Plan (02/14/2019 11:18 AM CDT): Weight/BMI is in healthy range. Continue healthy lifestyle to maintain. Alcoholism in recovery ([facility]) 02/14/2019 12/26/2021 Assessment & Plan (05/11/2020 12:16 PM FIELD CANE SCALE CLERK): Patient states he is no longer drinking. Assessment & Plan (05/29/2019 10:34 PM FIELD CANE SCALE CLERK): Encouraged complete cessation. He is not interested in any assistance at this time. Assessment & Plan (02/14/2019 8:34 PM CDT): This is a significant, separately identifiable problem that was evaluated and managed on the same day as the wellness exam Has been clean since discharge from Rehab. Encouraged AA, he hasnt established with them as of yet. Encouraged paychiatrist and or info specialist if he feels like he needs further assistance with alcoholism treatment. Continue folate/B12 supplement Other fatigue 02/14/2019 12/27/2021 Assessment & Plan (03/02/2021 9:31 PM CDT): Probably multifactorial. Check labs and followup to re-evaluate Assessment & Plan (02/14/2019 8:36 PM CDT): Probably multifactorial. Check labs and followup to re-evaluate Elevated LFTs 02/14/2019 12/27/2021 Assessment & Plan (03/02/2021 9:30 PM CDT): Stop drinking. Monitor labs Assessment & Plan (05/11/2020 12:18 PM FIELD CANE SCALE CLERK): Resolved with alcohol cessation Assessment & Plan (05/29/2019 10:35 PM FIELD CANE SCALE CLERK): Probably secondary to alcohol use. Need to recheck labs. Assessment & Plan (02/14/2019 8:37 PM CDT): This is a significant, separately identifiable problem that was evaluated and managed on the same day as the wellness exam Elevated in Rehab. Recheck labs. Colon cancer screening 02/14/201912/27 Assessment & Plan (05/11/2020 12:18 PM FIELD CANE SCALE CLERK): Pt will do cologuard. New order sent Assessment & Plan (05/29/2019 10:35 PM FIELD CANE SCALE CLERK): Has cologuard at home. Needs to return Assessment & Plan (02/14/2019 8:35 PM CDT): COloguard order sent Medicare annual wellness visit, initial 02/14/2019 05/29/2019 Assessment & Plan (02/14/2019 8:36 PM CDT): Encouraged healthy lifestyle, good nutrition and exercise. Encouraged Calcium and Vitamin D and weight bearing exercise for bone health. Reviewed immunizations Reviewed age appropirate screenings. Documentation is on the chart Immunizations Immunization Administration Dates Next Due Influenza LAIV (Nasal) 07/23/2022(Deferr ed: Patient Refused),07/23/2021(Deferred: Patient Refused) Influenza, Quadrivalent, Hig h Dose, Preservative Free, Intrr 04/03/2021 Influenza, Quadrivalent, Spl it, Preservative Free, Intramuscular 05/11/2020 Influenza, Unspecified 06/22/2024(Deferr ed: Patient Refused),06/22/2023(Deferred: Patient Refused),06/22/2023(Deferred: Patient Refused),07/23/2022(Deferred: Patient Refused),07/23/2021(Deferred: Patient Refused),05/26/2019(Deferred: Patient Refused),03/22/2018(Deferred: Patient Refused) Pneumococcal Conjugate PCV 13 12/27/2021 Pneumococcal Conjugate Pcv20 02/19/2023 Social History Tobacco Use Types Packs/Day Years Used Date Smoking Tobacco: Every Day Cigarettes 0.8 54.7 Started: 04/09/1970 Smokeless Tobacco: Never Alcohol Use Standard Drinks/Week Comments Not Currently 0 (1 standard drink = 0.6 oz pur e alcohol) AUDIT-C Answer Date Recorded Q1: How often do you have a drink containing alc ohol? Monthly or less 09/15/2024 Q2: How many drinks containi ng alcohol do you have on a typical day when you are drinking? 1 or 2 09/15/2024 Q3: How often do you have si x or more drinks on one occasion? Never 09/15/2024 PHQ-2 Answer Date Recorded PHQ-2 Total Score (If total score is 3 or more points, staff should administer the PHQ-9) 0 09/15/2024 Sex and Gender Information Value Date Recorded Sex Assigned at Not on file Legal Sex Male 1:21 AM FIELD CANE SCALE CLERK Gender Identity Not on file Sexual Orientation Not on file Occupation Industry Job Start Date Job End Date Disability Not on file Not on file Not on file Last Filed Vital Signs Vital Sign Reading Time Taken Comments Blood Pressure 140/90 09/15/2024 10:35 AM CDT Pulse 52 09/15/2024 10:35 AM CDT Temperature 36.4 C (97.5 F) 09/15/2024 10:35 AM CDT Respiratory Rate 16 02/19/2023 9:09 AM CDT Oxygen Saturation 96% 09/15/2024 10:35 AM CDT Inhaled Oxygen Concentration - - Weight 101 kg (222 lb 9.6 oz) 09/15/2024 10:35 A M CDT Height 182.9 cm (6') 09/15/2024 10:35 AM CDT Body Mass Index 30.19 09/15/2024 10:35 AM CDT Plan of Treatment Not on file Procedures Procedure Name Priority Date/Time Associated Diagnosis Comments PSA SCREEN Routine 04/28/2020 9:23 AM FIELD CANE SCALE CLERK Prostate cancer screening from Last 3 Months or Most Recently Relevant to Health Maintenance Results * PSA screen (04/28/2020 9:23 AM FIELD CANE SCALE CLERK) PSA 1.9 < OR = 4.0 ng/mL [employer] [facility] Comment: The total PSA value from this assay system is standardized against the WHO standard. The test result will be approximately 20% lower when compared to the equimolar-standardized total PSA (Eliz Ingles[place]). Comparison of serial PSA results should be interpreted with this fact in mind. This test was performed using the Siemens chemiluminescent method. Values obtained from different assay methods cannot be used interchangeably. PSA levels, regardless of value, should not be interpreted as absolute evidence of the presence or absence of disease. 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
--- OUTSIDE RECORDS SUMMARY | 2024-12-29 07:14 | XMS_ITS | Encounter Summary ---
Author Organization [facility] Healthcare Address [address] [place] [address] Care Team Providers Care Ingot Caster Name Role Phone Umm Dawn Primary Care Provider [phone] Reason for Visit * Reason Onset Date Comments Medical Question/Miscellaneous 11/22/2024 Encounter Details Date Type Department Care Team (Late st Contact Info) Description 11/22/2024 Telephone [facility] Family Medicine [address] [place] [address] Umm Dawn PA [address] [place] [address] Medical Question/Miscellaneous Social History Tobacco Use Types Packs/Day Years [...] on file 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 patient is at facility and there is an issue with order/referral missing) Practice Accepted the Warm Transfer? Yes Additional Comments If YES above, and no barriers. Does message need to be routed? No * Telephone Encounter - Veena Luis LPN - 11/22/2024 1:03 PM CDT Updated order with proper diagnosis code faxed to [place]. * Telephone Encounter - Paige Singh - 11/22/2024 11:47 AM CDT Medical Question/Miscellaneous Caller???s Concern: Diego from [facility] called for the diagnosis code for the Ultrasound Abdomen complete order. Patient is scheduled for 11/28/24. Fax# is : [phone] Does message need to be routed? Yes-Action Needed documented in this encounter Plan of Treatment Not on file documented as of this encounter Visit Diagnoses Not on filedocumented in this encounter Care Teams Ingot Caster Relationship Specialty Start Date End Date Umm Dawn PA [address] [place] [address] PCP - General Internal Medicine 01/25/19 documented as of this encounter
--- OUTSIDE RECORDS SUMMARY | 2024-12-29 07:14 | XMS_ITS | Encounter Summary ---
Author Organization [facility] Address [address] [place] [address] Care Team Providers Care Physical Therapy Assistant Instructor Name Role Phone Nilesh Marrero MD Primary Care Provider [phone] Encounter Details Date Type Department Care Team (Late st Contact Info) Description 10/02/2015 Abstract [facility]-[address] [place] [address] Hillary Arellano MD [address] [place] [phone] (Work) Social History Tobacco Use Types Packs/Day Years Used Date Smoking Tobacco: Former Cigarettes Q uit: 11/2014 Sex and Gender Information Value Date Recorded Sex Assigned at Not on file Legal Sex Male 3:40 PM CDT Gender Identity Not on file Sexual Orientation Not on file 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
--- OUTSIDE RECORDS SUMMARY | 2024-12-29 07:14 | XMS_ITS | Data Portability ---
Author Organization [facility] [employer]- Address [address] [place] [address] Assessment No assessment recorded. Plan of Treatment Reminders Order Date Submit Date Provider Last Modified By Organization Details Last Modified Time Details Appointments None recorded. Lab None recorded. Referral None recorded. Procedures None recorded. Surgeries None recorded. Imaging None recorded. Medication Orders gabapentin 300 mg capsule 2018 019 INTERFACE [facility], [address] [place], [address], 9 13:20:57 Patient TargetsNo targets recorded. Patient Instructions Encounter Date Encounter Id Patient Instructions Last Modified By Organization Details Last Modified Time 03/26/2018 [id number] high blood pressure: care instructions [email or web address] Not available 03/26/2018 12:25:55 learning about high blood pressure [email or web address] Not available 03/26/2018 12:25:55 Reason for Referral None Reported. Problems Name Problem SNOMED Code Status Onset Date Resolution Date Notes Provider Name and Address Organization Details Recorded Time Essential hypertensio n 23720067 Active 2017 Nilesh Marrero MD [address] [place], [address], J[facility] 8 18:58:04 Chronic obstructive pulmonary disease 57764619 Active 2017 Nilesh Marrero MD [address] [place], [address], [facility] 8 18:58:13 Anxiety 66021785 Active 2017 Nilesh Marrero MD [address] [place], [address], [facility] 8 18:58:22 Infection of olecranon bursa of right elbow 0617769899979 101 Active 2017 Nilesh Marrero MD [address] [place], [address], [facility] 8 19:05:46 Peripheral nerve disease 279824749 Active 2018 Nilesh Marrero MD [address] [place], [address], [facility] 9 13:19:50 Problem Notes None recorded. Procedures Surgical History Date Name Laterality Status Provider Name and Address Organization Details Recorded Time 06/03/2018 I&D completed Nilesh Marrero MD [address] [place], [address], [facility] 06/03/2018 19:05:20 Imaging Results None recorded. Procedure Notes None recorded. Medical Equipment None Reported. Allergies No known drug allergies Medications Name Sig Start Date Stop Date Status Note LastModified by Organization Details LastModified Time donepezil 5 mg tablet active Not Available Not Available Not Available naltrexone 50 mg tablet active Not Available Not Available No t Available spironolactone 25 mg-hydrochlorot hiazide 25 mg tablet TAKE 1 TABLET BY MOUTH EVERY DAY 2018 active Not Available Not Available Not Avai lable hydralazine 25 mg tablet active Not Available Not Available No t Available lithium carbonate 150 mg capsule active Not Available Not Available N ot Available amlodipine 5 mg tablet active Not Available Not Available Not Available ciprofloxacin 500 mg tablet active Not Available Not Availabl e Not Available spironolactone 25 mg tablet active Not Available Not Available Not Available trazodone 100 mg tablet active Not Available Not Available No t Available ropinirole 0.25 mg tablet active Not Available Not Available No t Available diazepam 2 mg tablet active Not Available Not Available Not Available lithium carbonate 300 mg capsule TAKE 1 CAPSULE BY MOUTH THREE TIMES A DAY 2018 active Not Available Not Available Not Avai lable paroxetine 20 mg tablet active Not Available Not Available No t Available trazodone 150 mg tablet active Not Available Not Available No t Available gabapentin 300 mg capsule Take 1 capsule 3 times a day by oral route as needed. active Not Available Not Available No t Available hydrochlorothia zide 25 mg tablet active Not Available Not Available Not Available gabapentin 100 mg capsule active Not Available Not Available N ot Available zolpidem 10 mg tablet active Not Available Not Available Not Available benazepril 40 mg tablet TAKE 1 TABLET BY MOUTH TWICE A DAY 2018 active Not Available Not Available Not Avai lable lithium carbonate 300 mg tablet active Not Available Not Available No t Available diazepam 5 mg tablet active Not Available Not Available Not Available Trintellix 10 mg tablet active Not Available Not Available No t Available Vitals Date Recorded Body height Heart rate Respiratory rate Body temperature Body mass index (BMI) Body weight Oxygen saturation Oxygen saturation in Arterial blood by Pulse oximetry Systolic And Diastolic Provider Name and Address Organization Details Last Updated DateTime 9 185.42 cm 65 /min 18 /min 99.1 [degF] 27.4 kg/m2 58707.2 1 g 98 % 98 % 130/80 mm[Hg] Shanice Trung [place] [employer] 9 12:15:47 Date Recorded Body height Heart rate Respiratory rate Body temperature Body mass index (BMI) Body weight Oxygen saturation Oxygen saturation in Arterial blood by Pulse oximetry Systolic And Diastolic Provider Name and Address Organization Details Last Updated DateTime 8 185.42 cm 68 /min 18 /min 97.8 [degF] 27.7 kg/m2 36867.4 g 95 % 95 % 140/86 mm[Hg] Radha [facility] [employer] 8 16:59:16 Date Recorded Body height Heart rate Respiratory rate Body temperature Body mass index (BMI) Body weight Oxygen saturation Oxygen saturation in Arterial blood by Pulse oximetry Systolic And Diastolic Provider Name and Address Organization Details Last Updated DateTime 8 185.42 cm 54 /min 20 /min 98.8 [degF] 27.2 kg/m2 78070.0 3 g 97 % 97 % 128/80 mm[Hg] Radha [facility] [employer] 8 11:38:30 Date Recorded Body height Heart rate Respiratory rate Body temperature Body mass index (BMI) Body weight Oxygen saturation Oxygen saturation in Arterial blood by Pulse oximetry Systolic And Diastolic Provider Name and Address Organization Details Last Updated DateTime 8 185.42 cm 78 /min 22 /min 98.3 [degF] 28 kg/m2 38892.5 8 g 80 % 80 % 140/92 mm[Hg] Radha German [place] [facility] [employer] 12:37:41 Social History Question Answer Notes LastModified by Organizat ion Details LastModified Time Tobacco Smoking Status Former Smoker Not Available [facility] 04/24/2020 03:56:11 What Was The Date Of Your Most Recent Tobacco Screening? 06/24/2018 [id number] Information not available 04/24/2020 How Many Years Have You Smoked Tobacco? 35 [id number] Information not available 04/24/2020 Sex: Unknown Functional Status None recorded. Mental Status None recorded. Family History Relationship Description Onset Age of this Age Resolved Age Notes LastModified by Organization Details LastModified Time Father No current problems or disability [email or web address] Not available 18:58:44 Mother No current problems or disability [email or web address] Not available 18:58:44 Medical History Condition Response Hypertension Y Past Encounters Encounter ID Performer Location Encounter Start Date Encounter Closed Date Diagnosis/Indication Diagnosis SNOMED-CT Code Diagnosis ICD10 Code Diagnosis Note [id number] Nilesh Marrero MD MAIN OFFICE [address] [place] [address] 09/15/2017 16:31:33 09/15/2017 17:19:58 Peripheral nerve disease 614083928 G64 Discussed in detail w pt and his . Explained dx, explained therapy. Start gabapentin 100 mg 1,2, or 3 at hs (#30) They will call and let us know if helps. Anxiety 40378043 F41.[address] Colbert Essential hypertension 01907719 I10 [id number] Nilesh Marrero MD MAIN [address]ICE [address] [place] [address] 03/26/2018 11:32:04 03/26/2018 12:01:49 Anxiety 73028877 F41.9 Continue current meds. See discharge summary from rehab. Li level was therapeuti c at discharge. See back in 2 months. Consider labs. He is going to start going to the exercise place next to [facility]. Essential hypertension 34920419 I10 Condition stable. Continue same meds. [id number] Nilesh Marrero MD MAIN OFFICE [address] [place] [address] 06/03/2018 12:30:04 06/03/2018 12:55:32 Infection of olecranon bursa of right elbow 4970446376 942922 M71.121 pressure dressing applied with FUNMILAYO bandage. Rx sent in for Cipro 500 bid x 10 days. See back if not improving next week. [id number] iNlesh Marrero MD MAIN OFFICE [address] [place] [address] 06/24/2018 12:06:59 06/24/2018 12:29:24 Olecranon bursitis 001411147 M70.21 Local anesthesia . 15 ml of straw colored fluid withdrawn. Pressure dressing applied. Leave on for at least 24 hrs. Peripheral nerve disease 000337289 G64 Discussed in detail. Refilled gabapentin Health Concerns Section Related Observation LastModified by Organization Detai ls LastModified Time None Recorded Concern Status LastModified by Organization Details LastModified Time None Recorded Advance Directives Directive None Recorded Payers Insurance Date Sequence Insurance Name Policy Number Policy Rosa Covered Member ID Rosa Member ID Guarantor Name 05/31/2020 1 [place] Jamaal Martinez [id number] Jamaal Martinez 06/23/2018 2 [place] [id number] Jamaal Martinez [id number] Jamaal Martinez 09/15/2017 1 [employer] (PP[employer]) [id number] Gabbie Juan [id number] Jamaal Martinez Notes Date Note Type Note Provider Name and Address Organization Details Recorded Time 09/15/2017 text/html Musculoskeletal PainReported bypatient.Location:puma n is not radiating; bilateral foot Quality:tingling Severity:same;interfer ence with sleep;interference with work Duration:present for 6-12 months Timing:constant Alleviating factors:relieved by changing position Aggravating factors:movement/posit ioning Associated Symptoms:no fever; no weak limbs; no tingling; no incontinence;numbness of the legs/feet ADL (Activities of Daily Living)walking; sweepingNotes:Jamaal has a feeling that his feet are cold all the time. Nilesh Marrero MD [address] [place], [address], [facility] [employer] 09/15/2017 19:06:25 03/26/2018 text/html Generalized Anxi ety DisorderReported bypatient.Onset/Timing :1 months Severity:moderate Context:alcohol abuse; life stressors Modifying Factors:psychotropic medication; psychotherapy; exercise; nutritious diet Associated Symptoms:no difficulty concentrating; no difficulty swallowing; no sweating; no hot flashes; no chest pain; no increased heart rate; no shortness of breath; no nausea; no diarrhea; no fatigue; no irritability; no muscle tension; no dizziness; no muscle aches; no trembling; no twitching; no exaggerated startle response; no headaches; no restlessness;difficult y controlling worry;excess anxiety;sleep disturbancesNotes:eHrnan mendoza was admitted to rehab for a relapse of his alcoholism from 02/18 to 03/14. He did well and was discharged on lithium and Paxil. Nilesh Marrero MD [address] [place] [address], [phone], [facility] 03/26/2018 12:26:16 06/03/2018 text/html Musculoskeletal PainReported bypatient.Location:puma n is not radiating; right elbow Quality:sharp Severity:same;interfer ence with sleep;interference with work Duration:present <1 month Timing:constant; pain at night; sudden Context:trauma Alleviating factors:rest Aggravating factors:movement/posit ioning Associated Symptoms:no fever; no weak limbs; no tingling; no numbness of the legs/feet; no incontinence ADL (Activities of Daily Living)walking;do not improve with medication Medicationsno driving impairmentNotes:Jamaal is here with his . He struck his right elbow on a door frame about 4 days ago. He has painful red swelling over the right olecranon process. Nilesh Marrero MD [address] [place], [address], Jascha 06/03/2018 19:07:00 06/24/2018 text/html Musculoskeletal PainReported bypatient.Location:puma n is not radiating; right elbow Quality:sharp Severity:same;interfer ence with sleep;interference with work Duration:present <1 month Timing:constant; pain at night; sudden Context:trauma Alleviating factors:rest Aggravating factors:movement/posit ioning Associated Symptoms:no fever; no weak limbs; no tingling; no numbness of the legs/feet; no incontinence ADL (Activities of Daily Living)walking;do not improve with medication Medicationsno driving impairmentNotes:Jamaal has recurrent swelling of the right olecranon bursa. Nilesh Marrero MD [address] [place], [address], [facility] - [facility] 06/24/2018 13:21:25
--- OUTSIDE RECORDS SUMMARY | 2024-12-29 07:14 | XMS_ITS | Clinical Summary ---
Author Organization [facility] [address] [facility] Address [address] [place] [address] Care Team Providers Care Sheet Manager Name Role Phone Umm Dawn Primary Care Provider [phone]- [phone] Allergies No known active allergies Medications aspirin [...] gabapentin Assessment & Plan (05/11/2020 12:17 PM CASE FITTER): Continue gabapentin Assessment & Plan (05/29/2019 10:36 PM CASE FITTER): Check labs. Continue gabapentin prn. Cigarette smoker 02/14/2019 Assessment & Plan (09/27/2024 10:06 PM CDT): Encouraged smoking cessation. Discussed 3 minutes. Reviewed options for assistance with cessation. Reviewed continuous churn buttermaker sequela associated with smoking. Pt declines assistance at this time but may contact the office at anytime for further help as they desire. Patient declines low-dose CT Assessment & Plan (11/03/2023 2:34 PM CDT): Encouraged smoking cessation. Discussed 3 minutes. Reviewed options for assistance with cessation. Reviewed continuous churn buttermaker sequela associated with smoking. Pt declines assistance at this time but may contact the office at anytime for further help as they desire. Patient declines low-dose CT for screening Assessment & Plan (10/05/2023 9:46 AM CDT): Encouraged smoking cessation. Discussed 3 minutes. Reviewed options for assistance with cessation. Reviewed continuous churn buttermaker sequela associated with smoking. Pt declines assistance at this time but may contact the office at anytime for further help as they desire. Assessment & Plan (02/19/2023 8:25 PM CDT): Encouraged smoking cessation. Discussed 3 minutes. Reviewed options for assistance with cessation. Reviewed alf sequela associated with smoking. Pt declines assistance at this time but may contact the office at anytime for further help as they desire. Assessment & Plan (12/27/2021 9:49 PM CDT): Encouraged smoking cessation. Discussed 3 minutes. Reviewed options for assistance with cessation. Reviewed alf sequela associated with smoking. Pt declines assistance at this time but may contact the office at anytime for further help as they desire. Offered low-dose CT for lung cancer screening he declines. Assessment & Plan (03/02/2021 9:34 PM CDT): Encouraged smoking cessation. Discussed 3 minutes. Reviewed options for assistance with cessation. Reviewed alf sequela associated with smoking. Pt declines assistance at this time but may contact the office at anytime for further help as they desire. b Not interested in LDCT for lung cancer screening Assessment & Plan (05/11/2020 12:18 PM CASE FITTER): Encouraged smoking cessation. Discussed 3 minutes. Reviewed options for assistance with cessation. Reviewed continuous churn buttermaker sequela associated with smoking. Pt declines assistance at this time but may contact the office at anytime for further help as they desire. Assessment & Plan (05/29/2019 10:35 PM CASE FITTER): Encouraged smoking cessation. Discussed 3 minutes. Reviewed options for assistance with cessation. Reviewed continuous churn buttermaker sequela associated with smoking. Pt declines assistance [...] Supplement Assessment & Plan (05/11/2020 12:17 PM CASE FITTER): Continue supplement Assessment & Plan (02/14/2019 8:33 [...] He denies ever being tested for COPD. 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 Assessment & Plan (05/11/2020 12:17 PM CASE FITTER): Monitor labs Assessment & Plan (02/14/2019 8:34 [...] alcohol Assessment & Plan (05/11/2020 12:17 PM CASE FITTER): Improving since stopping alcohol Assessment & Plan (02/14/2019 8:34 PM CDT): Check labs Moderate episode of recurrent major depressive d isorder 02/14/2019 Assessment & Plan (09/27/2024 10:06 PM CDT): Patient seems to have depression bipolar. See psychiatrist Flavia Rivera on the nurse practitioner he still [...] Smith Assessment & Plan (05/11/2020 12:18 PM CASE FITTER): Continue per psychiatry Assessment & Plan (05/29/2019 10:35 PM CASE FITTER): Encouraged establishing with Psychiatry as pt is on [place]. Assessment & Plan (02/14/2019 8:40 PM CDT): [...] a few months from his psychiatrist in [facility] so strongly encouraged him set the appointment [...] chest x-ray. He plans to go to [facility] here in [place]. We will await results. Will start on [...] 03/02/2021 Assessment & Plan (05/11/2020 12:18 PM CASE FITTER): Encouraged healthy lifestyle, good nutrition and exercise. Encouraged Calcium and Vitamin D and weight bearing exercise for bone health. Reviewed immunizations. Reviewed age appropirate screenings. Medicare Wellness Documentation is completed within the chart Need for immunization against influenza 05/11/2020 03/02/2021 Assessment & Plan (05/11/2020 12:19 PM CASE FITTER): Updated in office BMI 29.0-29.9,adult 02/14/2019 09/28/19 25 Assessment & Plan (11/03/2023 2:35 PM CDT): Weight/BMI is in healthy range. Continue healthy lifestyle to maintain. Assessment & Plan (10/05/2023 9:46 AM CDT): Weight/BMI is in healthy range. Continue healthy lifestyle to maintain. Assessment & Plan (05/11/2020 12:18 PM CASE FITTER): Weight/BMI is in healthy range. Continue healthy lifestyle to maintain. Assessment & Plan (05/29/2019 10:35 PM CASE FITTER): Weight/BMI is in healthy range. Continue healthy lifestyle to maintain. Assessment & Plan (02/14/2019 11:18 AM CDT): Weight/BMI is in healthy range. Continue healthy lifestyle to maintain. Alcoholism in recovery (CMS/HCC) 02/14/2019 12/26/2021 Assessment & Plan (05/11/2020 12:16 PM CASE FITTER): Patient states he is no longer drinking. Assessment & Plan (05/29/2019 10:34 PM CASE FITTER): Encouraged complete cessation. He is not interested in any assistance at this time. Assessment & Plan (02/14/2019 8:34 PM CDT): This is a significant, separately identifiable problem that was evaluated and managed on the same day as the wellness exam Has been clean since discharge from Rehab. Encouraged AA, he hasnt established with them as of yet. Encouraged paychiatrist and or academic specialist if he feels like he needs [...] labs Assessment & Plan (05/11/2020 12:18 PM CASE FITTER): Resolved with alcohol cessation Assessment & Plan (05/29/2019 10:35 PM CASE FITTER): Probably secondary to alcohol use. Need to recheck labs. Assessment & Plan (02/14/2019 8:37 PM CDT): This is a significant, separately identifiable problem that was evaluated and managed on the same day as the wellness exam Elevated in Rehab. Recheck labs. Colon cancer screening 02/14/201912/27 Assessment & Plan (05/11/2020 12:18 PM CASE FITTER): Pt will do cologuard. New order sent Assessment & Plan (05/29/2019 10:35 PM CASE FITTER): Has cologuard at home. Needs to return Assessment & Plan (02/14/2019 8:35 PM CDT): COloguard order sent Medicare annual wellness visit, initial 02/14/2019 05/29/2019 Assessment & Plan (02/14/2019 8:36 PM CDT): Encouraged healthy lifestyle, good nutrition and exercise. Encouraged Calcium and Vitamin D and weight bearing exercise for bone health. Reviewed immunizations Reviewed age appropirate screenings. Documentation is on the chart Encounters Date Type Department Care Team Description 11/22/2024 Orders Only [address] [place] [phone] Umm Dawn PA Abdomen enlarged (Primary Dx) 11/22/[address] [place] [phone] Umm Dawn PA Medical Question/Miscellaneous 11/08/[address] [place] [phone] Umm Dawn PA Medical Question/Miscellaneous 11/07/[address] [place] [phone] Umm Dawn PA Medical Question/Miscellaneous from Last 3 Months Immunizations Immunization Administration Dates Next Due Influenza LAIV (Nasal) 07/23/2022(Deferr ed: Patient Refused),07/23/2021(Deferred: Patient Refused) Influenza, Quadrivalent, Hig h Dose, Preservative Free, Intrr 04/03/2021 Influenza, Quadrivalent, Spl it, Preservative Free, Intramuscular 05/11/2020 Influenza, Unspecified 06/22/2024(Deferr ed: Patient Refused),06/22/2023(Deferred: Patient Refused),06/22/2023(Deferred: Patient Refused),07/23/2022(Deferred: Patient Refused),07/23/2021(Deferred: Patient Refused),05/26/2019(Deferred: Patient Refused),03/22/2018(Deferred: Patient Refused) Pneumococcal Conjugate PCV 13 12/27/2021 Pneumococcal Conjugate Pcv20 02/19/2023 Surgical History Surgery Date Site/Laterality Comments FACIAL RECONSTRUCTION SURGERY Family History Medical History Relation Name Comments Alcohol abuse Father Addiction problem Mother Hypertension Mother Alcohol abuse Son Depression Son Drug abuse Son Relation Name Status Comments Father Mother Son Social History Tobacco Use Types Packs/Day Years [...] on file Legal Sex Male 1:21 AM CASE FITTER Gender Identity Not on file Sexual Orientation Not on file Occupation Industry Job Start Date Job End Date Disability Not on file Not on file Not on file Obstetrics History Last Filed Vital Signs Vital Sign Reading [...] 09/15/2024 10:35 AM CDT Plan of Treatment Health Maintenance Due Date Last Done Comments Colon Cancer Screening-DNA Stool 1955 Hepatitis C Screening 1955 DTaP/Tdap/Td Vaccine (1 - Tdap) 1967 Hepatitis B Screening 1974 Lung Cancer Screening 2006 Zoster Vaccine (1 of 2) 2006 Abdominal Aortic Aneurysm (A AA) Screen 2021 Prostate Cancer Screening-PSA 04/28/2022 04/28/2020 Influenza Vaccine (#1) 2025 04/03/2021, 2019 Depression Screening 09/15/2025 09/15/2024, 11/03/2023, 10/05/2023, Additional history exists Fall Risk Assessment 09/15/2025 09/15/2024, 11/03/2023, 10/05/2023, Additional history exists Well Visit 65+ 09/15/2025 09/15/2024, 0806/2022, 12/27/2021, Additional history exists Pneumococcal vaccine 65+ Completed 02/19/2023, 0701/2022 Procedures Procedure Name Priority Date/Time Associated Diagnosis Comments PSA SCREEN Routine 04/28/2020 9:23 AM CASE FITTER Prostate cancer screening from Last 3 Months or Most Recently Relevant to Health Maintenance Results * PSA screen (04/28/2020 9:23 AM CASE FITTER) PSA 1.9 < OR = 4.0 ng/mL [facility] Comment: The total PSA value from this assay system is standardized against the WHO standard. The test result will be approximately 20% lower when compared to the equimolar-standardized total PSA ([place]). Comparison of serial PSA results should be interpreted with this fact in mind. This test was performed using the Siemens chemiluminescent method. Values obtained from different assay methods cannot be used interchangeably. PSA levels, regardless of value, should not be interpreted as absolute evidence of the presence or absence of disease. Blood specimen (specimen) 04/28/2020 9:23 AM CASE FITTER 04/28/2020 9:28 AM CASE FITTER Narrative [facility] - 04/29/2020 9:22 AM CASE FITTER FASTING:YES FASTING: YES Umm [facility] BLOOD ORDERABLES Final Result [facility] [address] [place] [phone] from Last 3 Months or Most Recently Relevant to Health Maintenance Insurance MEDICARE MEDICARE [facility] MEDICARE SUPPLEMENT Care Teams Sheet Manager Relationship Specialty Start Date End Date Umm Dawn PA [address] [place] [address] PCP - General Internal Medicine 01/25/19
== END 2024-12-29 07:12 | disposition home or self-care (01) ==
PROVIDERS: PCP Physician Assistant; Visit Provider Physician Assistant
DX: R19.8 Other specified symptoms and signs involving the digestive system and abdomen (principal)
CPT/HCPCS: 76700